=== PATIENT | female | born 1945 | race African-American/Black ===

== ENCOUNTER 2020-09-23 09:01 | Inpatient (IN) ==
[2020-09-23 09:07] VITALS: BMI 44.2
[2020-09-23 09:39] LABS: BASOPHILS # (AUTO) 0.1 X10^3/uL (0.0-0.1); BASOPHILS % (AUTO) 0.8 % (0.2-1.0); EOSINOPHILS # (AUTO) 0.3 x10^3/uL (0.0-0.2); EOSINOPHILS % (AUTO) 3.2 % (0.9-2.9); HEMATOCRIT 37.5 % (36.0-47.0); HEMOGLOBIN 12.3 g/dL (12.0-16.0); LYMPHOCYTES # (AUTO) 1.4 X10^3/uL (1.3-2.9); LYMPHOCYTES % (AUTO) 15.5 % (21.0-51.0); MEAN CORPUSCULAR HEMOGLOBIN 28.9 pg (27.0-34.0); MEAN CORPUSCULAR HGB CONC 32.9 g/dL (33.0-35.0); MEAN CORPUSCULAR VOLUME 87.6 fL (80.0-100.0); MEAN PLATELET VOLUME 8.5 fL (7.4-11.0); MONOCYTES # (AUTO) 0.6 x10^3/uL (0.3-0.8); MONOCYTES % (AUTO) 7.1 % (0.0-13.0); NEUTROPHILS # (AUTO) 6.4 x10^3/uL (2.2-4.8); NEUTROPHILS % (AUTO) 73.4 % (42.0-75.0); PLATELET COUNT 222 X10^3/uL (150.0-450.0); RED BLOOD COUNT 4.27 X10^6/uL (3.5-5.4); RED CELL DISTRIBUTION WIDTH 14.6 % (11.6-16.5); WHITE BLOOD COUNT 8.7 X10^3/uL (3.6-10.0)
[2020-09-23] MEDS ORDERED: LASIX IVP ONE ×2 (09:41→10:01)
--- NOTE | 2020-09-23 09:59 | DR.SOBA ---
HPI Time Seen Time Seen by Provider: 09/23/20 09:03 HPI Comment HPI Comment: Patient states that she got up to go to the bathroom this morning and she passed out. Notes taht she felt a little dizzy when she got up. [place] "fine" when she went to bed last night. Denies any chest pain. Notes that she has h/o CHF and has had worsening sob despite taking her meds. Notes that she can only walk a very short distance before she is winded and must rest. COVID-19 Coronavirus risk:travel/contact w/high risk person: No Has patient experienced Coronavirus symptoms: Yes Coronavirus symptoms experienced: Shortness of Breath PMH PMH Past Surgical History: Yes Travel Risk Coronavirus risk:travel/contact w/high risk person: No Has patient experienced Coronavirus symptoms: Yes Coronavirus symptoms experienced: Shortness of Breath ROS Review of Systems Constitutional: See HPI Respiratoy: Dry Cough and Short of Breath Cardiovascular: See HPI and Syncope; negative Chest Pain, Edema, Palpitations, Cyanosis, Skin Mottling and Other All Other Systems: Reviewed and Negative PE Vital Signs Vitals: Temperature 97.9 F Pulse Rate [Sitting] 83 Pulse Rate [Lying] 83 Pulse Rate 80 Respiratory Rate 20 Blood Pressure [Sitting] 142/98 Blood Pressure [Lying] 147/92 Blood Pressure 147/99 O2 Sat by Pulse Oximetry 95 General Limitations: No Limitations General Appearance: Alert and In No Apparent Distress COURSE Reevaluation 1st: Unchanged (discussed labs and need for CTA with patient and family. Patient notes that she is claustrophobic. Will give Ativan to help patient tolerate CT scan.) 2nd: Unchanged (patient dizzy with orthostatic manuevers, but no significant change in orthostatic VS. will obtain CT head) Consultation Consultation Comments: Spoke with Dr. Giuliana Johns who accepts patient for admission. Dr. Winn (PCP) is out of town [facility] Labs Reviewed Laboratory Results Reviewed?: Yes Result Diagrams: 09/23/20 09:13 09/23/20 09:13 Laboratory: WBC 8.7 X10^3/uL (3.6-10.0) 09/23/20 09:13 RBC 4.27 X10^6/uL (3.5-5.4) 09/23/20 09:13 Hgb 12.3 g/dL (12.0-16.0) 09/23/20 09:13 Hct 37.5 % (36.0-47.0) 09/23/20 09:13 MCV 87.6 fL (80.0-100.0) 09/23/20 09:13 MCH 28.9 pg (27.0-34.0) 09/23/20 09:13 MCHC 32.9 g/dL (33.0-35.0) L 09/23/20 09:13 RDW 14.6 % (11.6-16.5) 09/23/20 09:13 Plt Count 222 X10^3/uL (150.0-450.0) 09/23/20 09:13 MPV 8.5 fL (7.4-11.0) 09/23/20 09:13 Neut % (Auto) 73.4 % (42.0-75.0) 09/23/20 09:13 Lymph % (Auto) 15.5 % (21.0-51.0) L 09/23/20 09:13 [place] % (Auto) 7.1 % (0.0-13.0) 09/23/20 09:13 Eos % (Auto) 3.2 % (0.9-2.9) H 09/23/20 09:13 Baso % (Auto) 0.8 % (0.2-1.0) 09/23/20 09:13 Neut # (Auto) 6.4 x10^3/uL (2.2-4.8) H 09/23/20 09:13 Lymph # (Auto) 1.4 X10^3/uL (1.3-2.9) 09/23/20 09:13 [place] # (Auto) 0.6 x10^3/uL (0.3-0.8) 09/23/20 09:13 Eos # (Auto) 0.3 x10^3/uL (0.0-0.2) H 09/23/20 09:13 Baso # (Auto) 0.1 X10^3/uL (0.0-0.1) 09/23/20 09:13 Absolute Nucleated RBC 0.0 /100WBC 09/23/20 09:13 D-Dimer 8.94 ug/ml (0.0-0.57) H* 09/23/20 09:13 Sodium 144 mmol/L (136-145) 09/23/20 09:13 Corrected Sodium 146 mmol/L (136-145) H 09/23/20 09:13 Potassium 4.3 mmol/L (3.5-5.1) 09/23/20 09:13 Chloride 106 mmol/L (98-107) 09/23/20 09:13 Carbon Dioxide 24.4 mmol/L (21-32) 09/23/20 09:13 BUN 20 mg/dL (7-18) H 09/23/20 09:13 Creatinine 1.27 mg/dL (0.55-1.02) H 09/23/20 09:13 Est GFR (MDRD) Af Amer 53 (>60) L 09/23/20 09:13 Est GFR (MDRD) Non-Af 44 (>60) L 09/23/20 09:13 Glucose 178 mg/dL (65-99) H 09/23/20 09:13 Calcium 9.0 mg/dL (8.5-10.1) 09/23/20 09:13 Corrected Calcium TNP 09/23/20 09:13 Magnesium 0.9 mg/dL (1.7-2.9) L 09/23/20 09:13 Total Bilirubin 0.20 mg/dL (0.2-1.0) 09/23/20 09:13 AST 34 Units/L (15-37) 09/23/20 09:13 ALT 38 Units/L (12-78) 09/23/20 09:13 Alkaline Phosphatase 50 Units/L (46-116) 09/23/20 09:13 Creatine Kinase 107 Units/L (26-192) 09/23/20 09:13 CK-MB (CK-2) 2.2 ng/mL (0-4.0) 09/23/20 09:13 CK/CKMB % Calc 2.1 % (<4) 09/23/20 09:13 Troponin I 0.10 ng/mL (0-1.5) 09/23/20 09:13 B-Natriuretic Peptide 51.4 pg/mL (0-79) 09/23/20 09:13 Total Protein 7.6 g/dL (6.4-8.2) 09/23/20 09:13 Albumin 3.8 g/dL (3.4-5.0) 09/23/20 09:13 Globulin 3.8 g/dL (2.5-4.5) 09/23/20 09:13 Albumin/Globulin Ratio 1.0 Ratio (1.1-2.1) L 09/23/20 09:13 XRAY X-ray Results: CHEST, PA/LAT ADULT HISTORY:SOB Study: PA and lateral views of the chest. Comparison:None Findings: Cardiomegaly and pulmonary vascular congestion. No focal consolidations, pleural effusions or pneumothorax. Osseous structures demonstrate no acute abnormality. IMPRESSION: 1. Cardiomegaly and pulmonary vascular congestion. Electronically signed by: MARY MCFARLAND (Sep 23, 2020 10:07:41) HISTORY Dizziness, syncope STUDY CT head without contrast Technique: Axial noncontrast images with coronal and sagittal reformats. Dose reduction procedures were used with mA/kv adjusted for body size. COMPARISON None FINDINGS The ventricles, cortical sulci, and other CSF spaces are mildly enlarged consistent with mild generalized atrophy likely age related. There are no focal areas of abnormal attenuation to suggest recent or remote CVA, hemorrhage, mass lesion, or extra-axial fluid collection. The visualized sinuses are clear. The calvarium is intact. IMPRESSION No acute intracranial abnormality Generalized atrophy likely age related Electronically signed by: AZALEA WAGNER (Sep 23, 2020 11:47:51) Opioid Opioid Risk Tool Age ([place] box if 16-45): No History of Preadolescent Sexual Abuse: No Total: 0 Total Score Risk Category: Low Risk Copyright: Mani TORO predicting aberrant behaviors Diagnosis Discharge Problem: Pulmonary embolism Qualifiers: Pulmonary embolism type: saddle Chronicity: acute Acute cor pulmonale presence: unspecified Qualified Code(s): I26.92 - Saddle embolus of pulmonary artery without acute cor pulmonale
--- NOTE | 2020-09-23 10:09 | RAD ---
CHEST, PA/LAT ADULTHISTORY:SOBStudy: PA and lateral views of the chest.Comparison:NoneFindings:Cardiomegaly and pulmonary vascular congestion. No focal consolidations, pleural effusions or pneumothorax. Osseous structures demonstrate no acute abnormality.IMPRESSION:1. Cardiomegaly and pulmonary vascular congestion.Electronically signed by: MARY MCFARLAND (Sep 23, 2020 10:07:41)
[2020-09-23 10:18] LABS: ALANINE AMINOTRANSFERASE 38 Units/L (12-78); ALBUMIN 3.8 g/dL (3.4-5.0); ALKALINE PHOSPHATASE 50 Units/L (46-116); ASPARTATE AMINO TRANSFERASE 34 Units/L (15-37); BLOOD UREA NITROGEN 20 mg/dL (7-18); CARBON DIOXIDE 24.4 mmol/L (21-32); CHLORIDE 106 mmol/L (98-107); CKMB % 2.1 % (<4); COR NA(FOR HYPERGLY) 146 mmol/L (136-145); CREATINE KINASE 107 Units/L (26-192); CREATINE KINASE MB 2.2 ng/mL (0-4.0); CREATININE 1.27 mg/dL (0.55-1.02); MAGNESIUM 0.9 mg/dL (1.7-2.9); SODIUM 144 mmol/L (136-145); TOTAL PROTEIN 7.6 g/dL (6.4-8.2); eGFR NON BLACK RACES 44 (>60)
[2020-09-23] MEDS ORDERED: NS 100 ML IV 100 ML ONE (10:56)
[2020-09-23] MEDS ORDERED: ATIVAN INJ 2 MG VIAL IVP STA (10:57)
[2020-09-23] MEDS ORDERED: ATIVAN INJ 2 MG VIAL ONE (11:07)
--- NOTE | 2020-09-23 11:50 | CT ---
HISTORYDizziness, syncopeSTUDYCT head without contrastTechnique: Axial noncontrast images with coronal and sagittal reformats. Dose reduction procedures were used with mA/kv adjusted for body size.COMPARISONNoneFINDINGSThe ventricles, cortical sulci, and other CSF spaces are mildly enlarged consistent with mild generalized atrophy likely age related. There are no focal areas of abnormal attenuation to suggest recent or remote CVA, hemorrhage, mass lesion, or extra-axial fluid collection. The visualized sinuses are clear. The calvarium is intact.IMPRESSIONNo acute intracranial abnormalityGeneralized atrophy likely age relatedElectronically signed by: AZALEA WAGNER (Sep 23, 2020 11:47:51)
--- NOTE | 2020-09-23 11:56 | CT ---
CTA CHESTCLINICAL INDICATION: Elevated D-dimerPROCEDURE: Non gated axial images of the chest were obtained with intravenous contrast according to pulmonary embolism protocol. MIPS were reconstructed Dose reduction techniques including Automated Exposure Control (AEC) and adjustment of mA and kV were utlized.COMPARISON:NoneFINDINGS:There is a saddle embolism extending into all lobes.The heart is normal in size. No definite evidence of right heart strain. Severe coronary calcification.. No suspicious mediastinal or axillary lymph nodes . No focal consolidations, pleural effusions or pneumothorax .Airways are patent . No suspicious pulmonary nodules or masses .Limited images of the upper abdomen are unremarkable.No aggressive osseous lesions.IMPRESSION:1. Saddle embolism as above. No definite evidence of right heart strain.Electronically signed by: MARY MCFARLAND (Sep 23, 2020 11:54:23)
[2020-09-23] MEDS ORDERED: LOVENOX INJ 100 MG SYR SC STA (12:11)
[2020-09-23 12:17] LABS: BILIRUBIN,URINE NEGATIVE (NEGATIVE); BLOOD/HEMOGLOBIN,URINE 3+ (NEGATIVE); GLUCOSE, URINE NEGATIVE (NEGATIVE); KETONES,URINE NEGATIVE (NEGATIVE); LEUKOCYTE ESTERASE ,URINE NEGATIVE (NEGATIVE); NITRITES,URINE NEGATIVE (NEGATIVE); PROTEIN,URINE NEGATIVE (NEGATIVE); UROBILINOGEN,URINE NORMAL (NORMAL)
[2020-09-23] MEDS ORDERED: ELIQUIS ONE (12:23)
[2020-09-23] MEDS ORDERED: LOVENOX INJ 100 MG SYR SC ONE (12:23)
[2020-09-23 12:28] LABS: APPEARANCE,URINE CLEAR (CLEAR); COLOR,URINE YELLOW (YELLOW)
[2020-09-23] MEDS: ELIQUIS PO SCH ×2 (12:28→20:35)
[2020-09-23 12:31] LABS: BACTERIA,URINE NEGATIVE /HPF (NEGATIVE); SQUAMOUS EPITHELIAL CELL,UR RARE /HPF (NEGATIVE)
--- NOTE | 2020-09-23 13:29 | VAS ---
HISTORYEvaluate for possible deep vein thrombosis in the lower extremitySTUDYLOWER EXT VENOUS, BILATERALCOMPARISONNoneFINDINGSUltrasound evaluation of the deep venous system of both legs was perfo rmed from the level of the inguinal ligament down to the calf. Deep system is widely patent with good flow and compressibility seen along their course. No evidence of intraluminal thrombus is identified in either leg.IMPRESSIONNo deep vein thrombosis is seen in either lower extremityElectronically sign ed by: KAREN FOX (Sep 23, 2020 13:27:26)
[2020-09-23] MEDS: NS 1000 ML 1,000 ML IV SCH (14:16)
[2020-09-23] MEDS ORDERED: APRESOLINE INJ 20 MG VIAL IVP PRN (16:16)
[2020-09-23] MEDS ORDERED: MICRO K EXTEN CAP 10 MEQ PO PRN (18:03)
[2020-09-23] MEDS ORDERED: POTASSIUM CHLORIDE LIQ 20 MEQ UDC PO PRN (18:03)
[2020-09-23] MEDS ORDERED: POTASSIUM CHL 60 MEQ/NS 0.45% 500 ML IV PRN (18:03)
[2020-09-23] MEDS ORDERED: K-RIDER 10 MEQ/NS 100 ML 10 MEQ/100 ML BAG IV PRN (18:03)
[2020-09-23] MEDS ORDERED: POTASSIUM CHL 40 MEQ/NS 0.45% 500 ML IV PRN (18:03)
[2020-09-23] MEDS ORDERED: KLOR-CON PO PRN (18:03)
[2020-09-23] MEDS ORDERED: K-DUR TAB 20 MEQ PO PRN (18:03)
[2020-09-23] MEDS: MAGNESIUM SULFATE 1 GRAM/100 mL PREMIX 1 GM/100 ML BAG IV PRN ×4 (19:17→22:21)
[2020-09-23] MEDS: CATAPRES TAB 0.1 MG PO SCH (20:35)
[2020-09-23] MEDS: HumuLIN R SUBCUT PRN ×2 (20:36→21:47)
[2020-09-23] MEDS: RESTORIL CAP 15 MG PO PRN (22:21)
[2020-09-24] MEDS: MAGNESIUM SULFATE 1 GRAM/100 mL PREMIX 1 GM/100 ML BAG IV PRN ×3 (00:24→09:21)
[2020-09-24 05:28] LABS: BASOPHILS # (AUTO) 0.1 X10^3/uL (0.0-0.1); BASOPHILS % (AUTO) 0.7 % (0.2-1.0); EOSINOPHILS # (AUTO) 0.3 x10^3/uL (0.0-0.2); EOSINOPHILS % (AUTO) 3.2 % (0.9-2.9); HEMATOCRIT 37.6 % (36.0-47.0); HEMOGLOBIN 12.5 g/dL (12.0-16.0); LYMPHOCYTES # (AUTO) 1.7 X10^3/uL (1.3-2.9); MEAN CORPUSCULAR HGB CONC 33.2 g/dL (33.0-35.0); MEAN CORPUSCULAR VOLUME 87.2 fL (80.0-100.0); MEAN PLATELET VOLUME 8.6 fL (7.4-11.0); MONOCYTES # (AUTO) 0.9 x10^3/uL (0.3-0.8); MONOCYTES % (AUTO) 11.3 % (0.0-13.0); NEUTROPHILS # (AUTO) 5.4 x10^3/uL (2.2-4.8); NEUTROPHILS % (AUTO) 64.8 % (42.0-75.0); PLATELET COUNT 210 X10^3/uL (150.0-450.0); RED BLOOD COUNT 4.31 X10^6/uL (3.5-5.4); RED CELL DISTRIBUTION WIDTH 15.1 % (11.6-16.5); WHITE BLOOD COUNT 8.4 X10^3/uL (3.6-10.0)
[2020-09-24 05:39] LABS: ALANINE AMINOTRANSFERASE 26 Units/L (12-78); ALBUMIN 3.3 g/dL (3.4-5.0); ALKALINE PHOSPHATASE 48 Units/L (46-116); ASPARTATE AMINO TRANSFERASE 28 Units/L (15-37); BLOOD UREA NITROGEN 14 mg/dL (7-18); CALCIUM 8.7 mg/dL (8.5-10.1); CARBON DIOXIDE 24.3 mmol/L (21-32); CHLORIDE 103 mmol/L (98-107); COR CA(FOR HYPOALB) 9.3 mg/dL (8.5-10.1); COR NA(FOR HYPERGLY) 142 mmol/L (136-145); CREATININE 1.05 mg/dL (0.55-1.02); SODIUM 140 mmol/L (136-145); TOTAL PROTEIN 7.1 g/dL (6.4-8.2); eGFR NON BLACK RACES 55 (>60)
--- NOTE | 2020-09-24 05:39 | RAD ---
PROCEDURE: Chest X-ray 1 View .HISTORY: Short of breath.TECHNIQUE: AP view .COMPARISON: 09/23/2020.TECHNICAL QUALITY: Satisfactory .FINDINGS:Normal size heart .Mediastinum and hilar regions show no masses or lymphadenopathy .Normal central vascularity .No pulmonary consolidation, masses, pleural fluid, or pneumothorax .No acute bony abnormality .IMPRESSION:No active cardiopulmonary disease .Electronically signed by: Beto Persaud (Sep 24, 2020 05:37:27)
[2020-09-24] MEDS: NS 1000 ML 1,000 ML IV SCH ×2 (05:48→17:17)
[2020-09-24] MEDS: HYDROCHLOROTHIAZIDE 25 MG TAB PO SCH (09:16)
[2020-09-24] MEDS: ELIQUIS PO SCH ×2 (09:16→20:42)
[2020-09-24] MEDS: CATAPRES TAB 0.1 MG PO SCH ×2 (09:16→20:41)
[2020-09-24] MEDS: HumuLIN R SUBCUT PRN ×2 (11:36→20:42)
[2020-09-24] MEDS ORDERED: TYLENOL 325 MG TAB PO PRN (16:16)
--- NOTE | 2020-09-24 16:43 | DR.H&P ---
H&P History & Physical for Day of: H&P Date: 09/24/20 Chief Complaint Chief Complaint: passed out, saddle embolus Allergies Allergies Allergy/AdvReac Type Severity Reaction Status Date / Time No Known Drug Allergies Allergy Verified 09/23/20 09:01 History of Present Illness History of Present Illness: 74 y/o with dm, htn, chf has had worsening sob over the past month for which she was to have a ct but refused due to claustrophobia; passed out last night and presented to the ER where she was found to have a saddle embolus; currently, resting quietly in bed with family at bedside; still sob and weak when she moves around and is on oxygen; she has never had a clot and denies acute injury and long trips or sitting for long periods of time; her sister recently from a blood clot but she is unaware of additional fh clots. Past Medical History Past Medical History: CHF, Coronary Artery Disease, Diabetes, Dyslipidemia, GERD and Hypertension Additional Medical History: diabetes Past Surgical History Surgical History: CABG/Valve Surgery Family History Family Medical History: Diabetes Mellitus, [place] and Hypertension Social History Does patient currently use any type of tobacco product: No Have you used tobacco products in the last 12 months: No Type of Tobacco Use: None Does any household member use tobacco: No Alcohol Use: None Drug Use: Prescription Drugs Medications Home Medications: No Known Drug Allergies Allergy (Verified 09/23/20 09:01) CONTINUE taking the following medications clonidine HCl 0.1 mg PO BID 09/23/20 [History] clopidogrel 75 mg PO DAILY 09/23/20 [History] duloxetine 30 mg PO DAILY 09/23/20 [History] glimepiride 4 mg PO BID 09/23/20 [History] hydrochlorothiazide 25 mg PO DAILY 09/23/20 [History] insulin glargine-lixisenatide [[place] 100/33] 60 unit SUBCUT DAILY 09/23/20 [Hi story] lovastatin 40 mg PO DAILY 09/23/20 [History] metformin 1,000 mg PO BID 09/23/20 [History] metoprolol tartrate 25 mg PO BID 09/23/20 [History] pantoprazole 40 mg PO DAILY 09/23/20 [History] spironolactone 50 mg PO DAILY 09/23/20 [History] tramadol 50 mg PO TID PRN 09/23/20 [History] allopurinol 100 mg PO DAILY 09/24/20 [History] pregabalin 150 mg PO BID 09/24/20 [History] pregabalin 150 mg PO BID 09/24/20 [History] Labs Result Diagrams: 09/24/20 04:50 09/24/20 04:50 Labs: Laboratory WBC 8.4 X10^3/uL (3.6-10.0) 09/24/20 04:50 RBC 4.31 X10^6/uL (3.5-5.4) 09/24/20 04:50 Hgb 12.5 g/dL (12.0-16.0) 09/24/20 04:50 Hct 37.6 % (36.0-47.0) 09/24/20 04:50 MCV 87.2 fL (80.0-100.0) 09/24/20 04:50 MCH 29.0 pg (27.0-34.0) 09/24/20 04:50 MCHC 33.2 g/dL (33.0-35.0) 09/24/20 04:50 RDW 15.1 % (11.6-16.5) 09/24/20 04:50 Plt Count 210 X10^3/uL (150.0-450.0) 09/24/20 04:50 MPV 8.6 fL (7.4-11.0) 09/24/20 04:50 Neut % (Auto) 64.8 % (42.0-75.0) 09/24/20 04:50 Lymph % (Auto) 20.0 % (21.0-51.0) L 09/24/20 04:50 [place] % (Auto) 11.3 % (0.0-13.0) 09/24/20 04:50 Eos % (Auto) 3.2 % (0.9-2.9) H 09/24/20 04:50 Baso % (Auto) 0.7 % (0.2-1.0) 09/24/20 04:50 Neut # (Auto) 5.4 x10^3/uL (2.2-4.8) H 09/24/20 04:50 Lymph # (Auto) 1.7 X10^3/uL (1.3-2.9) 09/24/20 04:50 [place] # (Auto) 0.9 x10^3/uL (0.3-0.8) H 09/24/20 04:50 Eos # (Auto) 0.3 x10^3/uL (0.0-0.2) H 09/24/20 04:50 Baso # (Auto) 0.1 X10^3/uL (0.0-0.1) 09/24/20 04:50 Absolute Nucleated RBC 0.0 /100WBC 09/24/20 04:50 D-Dimer 8.94 ug/ml (0.0-0.57) H* 09/23/20 09:13 Sodium 140 mmol/L (136-145) 09/24/20 04:50 Corrected Sodium 142 mmol/L (136-145) 09/24/20 04:50 Potassium 4.4 mmol/L (3.5-5.1) 09/24/20 04:50 Chloride 103 mmol/L (98-107) 09/24/20 04:50 Carbon Dioxide 24.3 mmol/L (21-32) 09/24/20 04:50 BUN 14 mg/dL (7-18) 09/24/20 04:50 Creatinine 1.05 mg/dL (0.55-1.02) H 09/24/20 04:50 Est GFR (MDRD) Af Amer > 60 (>60) 09/24/20 04:50 Est GFR (MDRD) Non-Af 55 (>60) L 09/24/20 04:50 Glucose 189 mg/dL (65-99) H 09/24/20 04:50 POC Glucose (mg/dL) 198 mg/dL (65-99) H 09/24/20 16:21 Calcium 8.7 mg/dL (8.5-10.1) 09/24/20 04:50 Corrected Calcium 9.3 mg/dL (8.5-10.1) 09/24/20 04:50 Magnesium 1.8 mg/dL (1.7-2.9) 09/24/20 04:50 Total Bilirubin 0.30 mg/dL (0.2-1.0) 09/24/20 04:50 AST 28 Units/L (15-37) 09/24/20 04:50 ALT 26 Units/L (12-78) 09/24/20 04:50 Alkaline Phosphatase 48 Units/L (46-116) 09/24/20 04:50 Creatine Kinase 107 Units/L (26-192) 09/23/20 09:13 CK-MB (CK-2) 2.2 ng/mL (0-4.0) 09/23/20 09:13 CK/CKMB % Calc 2.1 % (<4) 09/23/20 09:13 Troponin I 0.10 ng/mL (0-1.5) 09/23/20 09:13 B-Natriuretic Peptide 51.4 pg/mL (0-79) 09/23/20 09:13 Total Protein 7.1 g/dL (6.4-8.2) 09/24/20 04:50 Albumin 3.3 g/dL (3.4-5.0) L 09/24/20 04:50 Globulin 3.8 g/dL (2.5-4.5) 09/24/20 04:50 Albumin/Globulin Ratio 0.9 Ratio (1.1-2.1) L 09/24/20 04:50 Specimen Type Catherized urine 09/23/20 11:54 Urine Color Yellow (YELLOW) 09/23/20 11:54 Urine Appearance Clear (CLEAR) 09/23/20 11:54 Urine pH 6.0 (5.0 - 8.0) 09/23/20 11:54 Ur Specific [place] 1.015 (1.000-1.030) 09/23/20 11:54 Urine Protein Negative (NEGATIVE) 09/23/20 11:54 Urine Glucose (UA) Negative (NEGATIVE) 09/23/20 11:54 Urine Ketones Negative (NEGATIVE) 09/23/20 11:54 Urine Occult Blood 3+ (NEGATIVE) 09/23/20 11:54 Urine Nitrite Negative (NEGATIVE) 09/23/20 11:54 Urine Bilirubin Negative (NEGATIVE) 09/23/20 11:54 Urine Urobilinogen Normal (NORMAL) 09/23/20 11:54 Ur Leukocyte Esterase Negative (NEGATIVE) 09/23/20 11:54 Urine RBC 10-20 /HPF (0-3) A 09/23/20 11:54 Urine WBC 0-2 /HPF (0-5) 09/23/20 11:54 Ur Squamous Epith Cells Rare /HPF (NEGATIVE) 09/23/20 11:54 Urine Bacteria Negative /HPF (NEGATIVE) 09/23/20 11:54 Ur Culture Indicated? No/not indicated 09/23/20 11:54 Review of Systems Eyes: No Symptoms Reported ENT: No Symptoms Reported Respiratory: See HPI and Shortness of Breath Cardiovascular: Chest Pain and See HPI Gastrointestinal: No Symptoms Reported Musculoskeletal: No Symptoms Reported Skin: No Symptoms Reported Neurological: No Symptoms Reported Physical Exam Vital Signs: Temperature 99.1 F Pulse Rate [Right] 83 Pulse Rate [Left] 63 Pulse Rate [Sitting] 83 Pulse Rate [Lying] 83 Pulse Rate 73 Respiratory Rate 24 Blood Pressure [Left Arm] 160/88 Blood Pressure [Sitting] 142/98 Blood Pressure [Lying] 147/92 Blood Pressure 137/80 O2 Sat by Pulse Oximetry 97 Oriented: Normal, Time, Person and Place Eyes: Normal Ear: Normal Respiratory: Clear Throughout (increased wob especially with talking, respirations 30-40) Cardiovascular: Tachycardia Palpation: Normal Skin: Normal Musculoskeletal: Normal Mood Description: Calm Affect: Normal Speech Pattern: Clear Assessment/Plan (1) Saddle embolism of pulmonary artery: Qualifiers: Chronicity: acute Acute cor pulmonale presence: unspecified Qualified Code(s): I26.92 - Saddle embolus of pulmonary artery without acute cor pulmonale Status: Acute Plan: She remains sob with increased respirations and work of breathing; continue oxygen and monitoring overnight; she will need to be up and mobile before discharge. (2) Tachypnea: Status: Acute (3) Hypertension, essential: Status: Acute Plan: Controlled; continue current mgmt. (4) Type 2 diabetes mellitus: Qualifiers: Diabetes mellitus senior living insulin use: without termite renewal inspector use Diabetes mellitus complication status: without complication Qualified Code(s): E11.9 - Type 2 diabetes mellitus without complications Status: Acute Plan: Monitor bs and follow closely.
[2020-09-24] MEDS: SNACK - Diabetic Appropriate PO SCH (20:00)
[2020-09-24] MEDS: RESTORIL CAP 15 MG PO PRN (21:15)
[2020-09-24] MEDS ORDERED: LEVSIN/MAALOX/LIDOC VISC PO ONE (23:07)
[2020-09-24] MEDS ORDERED: LYRICA CAP 150 mg PO ONE (23:09)
[2020-09-24] MEDS ORDERED: PROTONIX INJ 40 MG VIAL ONE (23:09)
[2020-09-24] MEDS ORDERED: LEVSIN/MAALOX/LIDOC VISC ONE (23:09)
[2020-09-24] MEDS: PROTONIX INJ 40 MG VIAL IVP SCH (23:10)
[2020-09-24] MEDS: LYRICA CAP 150 mg PO SCH (23:10)
[2020-09-25] MEDS: NS 1000 ML 1,000 ML IV SCH ×3 (05:40→18:09)
[2020-09-25] MEDS: HumuLIN R SUBCUT PRN ×4 (05:40→20:07)
[2020-09-25] MEDS: MAGNESIUM SULFATE 1 GRAM/100 mL PREMIX 1 GM/100 ML BAG IV PRN ×2 (06:38→09:00)
[2020-09-25] MEDS: CATAPRES TAB 0.1 MG PO SCH ×2 (08:40→20:07)
[2020-09-25] MEDS: HYDROCHLOROTHIAZIDE 25 MG TAB PO SCH (08:41)
[2020-09-25] MEDS: PROTONIX INJ 40 MG VIAL IVP SCH ×2 (08:41→20:07)
[2020-09-25] MEDS: LYRICA CAP 150 mg PO SCH ×2 (08:41→20:07)
[2020-09-25] MEDS: ELIQUIS PO SCH ×2 (08:41→20:07)
--- NOTE | 2020-09-25 16:29 | PCM.PROG ---
Progress Note Progress Note for Day of Date of Exam: 09/25/20 Subjective Subjective: Resting quietly with family at bedside; still "gives out" when oob to chair or br; no cough or wheezing. She does have intermittent substernal cp which has been there for some time and is unchanged; last had stent placed per Dr Mannie Proctor, 2020. Sugars have been elevated despite poor appetite for several weeks. Past Medical Family Social History Allergies: Allergies No Known Drug Allergies Allergy (Verified 09/23/20 09:01) Review of Systems ROS: No change since H&P Vital Signs and I&O's Vital Signs: Temperature 98.1 F Pulse Rate [Right] 83 Pulse Rate [Left] 63 Pulse Rate [Sitting] 83 Pulse Rate [Lying] 83 Pulse Rate 69 Respiratory Rate 26 Blood Pressure [Left Arm] 160/88 Blood Pressure [Sitting] 142/98 Blood Pressure [Lying] 147/92 Blood Pressure 151/67 O2 Sat by Pulse Oximetry 95 Intake and Output: Intake & Output 09/22/20 09/23/20 09/24/20 09/25/20 23:59 23:59 23:59 23:59 Intake Total 618 / 618 2998 / 2998 2018 Output Total 2024 / 2024 1700 / 1700 1700 / 1700 Balance -1407 / -1407 1298 / 1298 319 / 319 Physical Exam Oriented: Normal, Time, Person and Place Eyes: Normal Ear: Normal Cardiovascular: Normal (regular) Skin: Normal Musculoskeletal: Normal Mood Description: Calm Affect: Normal Speech Pattern: Clear and Appropriate Laboratory and Diagnostics Result Diagrams: 09/24/20 04:50 09/24/20 04:50 Labs: 09/23/20 09:22 Blood Blood Culture - Preliminary 09/23/20 09:13 Blood Blood Culture - Preliminary Laboratory WBC 8.4 X10^3/uL (3.6-10.0) 09/24/20 04:50 RBC 4.31 X10^6/uL (3.5-5.4) 09/24/20 04:50 Hgb 12.5 g/dL (12.0-16.0) 09/24/20 04:50 Hct 37.6 % (36.0-47.0) 09/24/20 04:50 MCV 87.2 fL (80.0-100.0) 09/24/20 04:50 MCH 29.0 pg (27.0-34.0) 09/24/20 04:50 MCHC 33.2 g/dL (33.0-35.0) 09/24/20 04:50 RDW 15.1 % (11.6-16.5) 09/24/20 04:50 Plt Count 210 X10^3/uL (150.0-450.0) 09/24/20 04:50 MPV 8.6 fL (7.4-11.0) 09/24/20 04:50 Neut % (Auto) 64.8 % (42.0-75.0) 09/24/20 04:50 Lymph % (Auto) 20.0 % (21.0-51.0) L 09/24/20 04:50 [place] % (Auto) 11.3 % (0.0-13.0) 09/24/20 04:50 Eos % (Auto) 3.2 % (0.9-2.9) H 09/24/20 04:50 Baso % (Auto) 0.7 % (0.2-1.0) 09/24/20 04:50 Neut # (Auto) 5.4 x10^3/uL (2.2-4.8) H 09/24/20 04:50 Lymph # (Auto) 1.7 X10^3/uL (1.3-2.9) 09/24/20 04:50 [place] # (Auto) 0.9 x10^3/uL (0.3-0.8) H 09/24/20 04:50 Eos # (Auto) 0.3 x10^3/uL (0.0-0.2) H 09/24/20 04:50 Baso # (Auto) 0.1 X10^3/uL (0.0-0.1) 09/24/20 04:50 Absolute Nucleated RBC 0.0 /100WBC 09/24/20 04:50 D-Dimer 8.94 ug/ml (0.0-0.57) H* 09/23/20 09:13 Sodium 140 mmol/L (136-145) 09/24/20 04:50 Corrected Sodium 142 mmol/L (136-145) 09/24/20 04:50 Potassium 4.4 mmol/L (3.5-5.1) 09/24/20 04:50 Chloride 103 mmol/L (98-107) 09/24/20 04:50 Carbon Dioxide 24.3 mmol/L (21-32) 09/24/20 04:50 BUN 14 mg/dL (7-18) 09/24/20 04:50 Creatinine 1.05 mg/dL (0.55-1.02) H 09/24/20 04:50 Est GFR (MDRD) Af Amer > 60 (>60) 09/24/20 04:50 Est GFR (MDRD) Non-Af 55 (>60) L 09/24/20 04:50 Glucose 189 mg/dL (65-99) H 09/24/20 04:50 POC Glucose (mg/dL) 240 mg/dL (65-99) H 09/25/20 15:36 Calcium 8.7 mg/dL (8.5-10.1) 09/24/20 04:50 Corrected Calcium 9.3 mg/dL (8.5-10.1) 09/24/20 04:50 Magnesium 1.5 mg/dL (1.7-2.9) L 09/25/20 04:35 Total Bilirubin 0.30 mg/dL (0.2-1.0) 09/24/20 04:50 AST 28 Units/L (15-37) 09/24/20 04:50 ALT 26 Units/L (12-78) 09/24/20 04:50 Alkaline Phosphatase 48 Units/L (46-116) 09/24/20 04:50 Creatine Kinase 107 Units/L (26-192) 09/23/20 09:13 CK-MB (CK-2) 2.2 ng/mL (0-4.0) 09/23/20 09:13 CK/CKMB % Calc 2.1 % (<4) 09/23/20 09:13 Troponin I 0.10 ng/mL (0-1.5) 09/23/20 09:13 B-Natriuretic Peptide 51.4 pg/mL (0-79) 09/23/20 09:13 Total Protein 7.1 g/dL (6.4-8.2) 09/24/20 04:50 Albumin 3.3 g/dL (3.4-5.0) L 09/24/20 04:50 Globulin 3.8 g/dL (2.5-4.5) 09/24/20 04:50 Albumin/Globulin Ratio 0.9 Ratio (1.1-2.1) L 09/24/20 04:50 Specimen Type Catherized urine 09/23/20 11:54 Urine Color Yellow (YELLOW) 09/23/20 11:54 Urine Appearance Clear (CLEAR) 09/23/20 11:54 Urine pH 6.0 (5.0 - 8.0) 09/23/20 11:54 Ur Specific [place] 1.015 (1.000-1.030) 09/23/20 11:54 Urine Protein Negative (NEGATIVE) 09/23/20 11:54 Urine Glucose (UA) Negative (NEGATIVE) 09/23/20 11:54 Urine Ketones Negative (NEGATIVE) 09/23/20 11:54 Urine Occult Blood 3+ (NEGATIVE) 09/23/20 11:54 Urine Nitrite Negative (NEGATIVE) 09/23/20 11:54 Urine Bilirubin Negative (NEGATIVE) 09/23/20 11:54 Urine Urobilinogen Normal (NORMAL) 09/23/20 11:54 Ur Leukocyte Esterase Negative (NEGATIVE) 09/23/20 11:54 Urine RBC 10-20 /HPF (0-3) A 09/23/20 11:54 Urine WBC 0-2 /HPF (0-5) 09/23/20 11:54 Ur Squamous Epith Cells Rare /HPF (NEGATIVE) 09/23/20 11:54 Urine Bacteria Negative /HPF (NEGATIVE) 09/23/20 11:54 Ur Culture Indicated? No/not indicated 09/23/20 11:54 cta: There is a saddle embolism extending into all lobes. The heart is normal in size. No definite evidence of right heart strain. Severe coronary calcification.. No suspicious mediastinal or axillary lymph nodes . No focal consolidations, pleural effusions or pneumothorax .Airways are patent . No suspicious pulmonary nodules or masses . Limited images of the upper abdomen are unremarkable. No aggressive osseous lesions. Radiology Reviewed: Yes Plan (1) Saddle embolism of pulmonary artery: Status: Acute Qualifiers: Chronicity: acute Acute cor pulmonale presence: unspecified Qualified Code(s): I26.92 - Saddle embolus of pulmonary artery without acute cor pulmonale Plan: She remains sob with increased respirations and work of breathing especially with effort; echo and consult Dr Shoemaker in consideration of embolectomy if she is a candidate; continue oxygen and monitoring overnight; continue oob to br. (2) Tachypnea: Status: Acute Plan: As above. (3) Hypertension, essential: Status: Acute Plan: Controlled; continue current mgmt. (4) Type 2 diabetes mellitus: Status: Acute Qualifiers: Diabetes mellitus watermelon inspector insulin use: without intermediate use Diabetes mellitus complication status: without complication Qualified Code(s): E11.9 - Type 2 diabetes mellitus without complications Plan: Up despite decreased appetite per pt; cover with ssri and follow. (5) Hypomagnesemia: Status: Acute Plan: Replace and follow. (6) CAD (coronary artery disease): Status: Acute Qualifiers: Coronary Disease-Associated Artery/Lesion type: [place] artery [place] vs . transplanted heart: [place] heart Associated angina: with stable angina Qualified Code(s): I25.118 - Atherosclerotic heart disease of [place] coronary artery with other forms of angina pectoris (7) S/P coronary artery stent placement: Status: Acute
[2020-09-25] MEDS: MAG-OX TAB PO SCH (18:09)
[2020-09-25] MEDS: SNACK - Diabetic Appropriate PO SCH (20:00)
[2020-09-25] MEDS: RESTORIL CAP 15 MG PO PRN (20:07)
[2020-09-26 05:16] LABS: BASOPHILS # (AUTO) 0.1 X10^3/uL (0.0-0.1); BASOPHILS % (AUTO) 0.8 % (0.2-1.0); EOSINOPHILS # (AUTO) 0.3 x10^3/uL (0.0-0.2); EOSINOPHILS % (AUTO) 3.6 % (0.9-2.9); HEMATOCRIT 36.8 % (36.0-47.0); HEMOGLOBIN 12.2 g/dL (12.0-16.0); LYMPHOCYTES # (AUTO) 1.8 X10^3/uL (1.3-2.9); LYMPHOCYTES % (AUTO) 21.6 % (21.0-51.0); MEAN CORPUSCULAR HEMOGLOBIN 29.3 pg (27.0-34.0); MEAN CORPUSCULAR HGB CONC 33.2 g/dL (33.0-35.0); MEAN CORPUSCULAR VOLUME 88.3 fL (80.0-100.0); MEAN PLATELET VOLUME 8.4 fL (7.4-11.0); MONOCYTES # (AUTO) 0.9 x10^3/uL (0.3-0.8); MONOCYTES % (AUTO) 10.4 % (0.0-13.0); NEUTROPHILS # (AUTO) 5.3 x10^3/uL (2.2-4.8); NEUTROPHILS % (AUTO) 63.6 % (42.0-75.0); PLATELET COUNT 215 X10^3/uL (150.0-450.0); RED BLOOD COUNT 4.17 X10^6/uL (3.5-5.4); WHITE BLOOD COUNT 8.3 X10^3/uL (3.6-10.0)
[2020-09-26 05:33] LABS: ALANINE AMINOTRANSFERASE 31 Units/L (12-78); ALBUMIN 3.3 g/dL (3.4-5.0); ALKALINE PHOSPHATASE 54 Units/L (46-116); ASPARTATE AMINO TRANSFERASE 12 Units/L (15-37); BLOOD UREA NITROGEN 8 mg/dL (7-18); CALCIUM 8.5 mg/dL (8.5-10.1); CARBON DIOXIDE 28.3 mmol/L (21-32); CHLORIDE 105 mmol/L (98-107); COR CA(FOR HYPOALB) 9.1 mg/dL (8.5-10.1); COR NA(FOR HYPERGLY) 144 mmol/L (136-145); CREATININE 0.97 mg/dL (0.55-1.02); MAGNESIUM 1.4 mg/dL (1.7-2.9); SODIUM 141 mmol/L (136-145); TOTAL PROTEIN 6.9 g/dL (6.4-8.2); eGFR NON BLACK RACES 60 (>60)
[2020-09-26] MEDS: NS 1000 ML 1,000 ML IV SCH (05:41)
[2020-09-26] MEDS: MAGNESIUM SULFATE 1 GRAM/100 mL PREMIX 1 GM/100 ML BAG IV PRN ×3 (05:44→08:15)
[2020-09-26] MEDS: MAG-OX TAB PO SCH ×3 (06:14→16:22)
--- NOTE | 2020-09-26 07:40 | DR.CONSULT ---
CONSULT Consultation for Day of: Date: 09/26/20 Chief Complaint Chief Complaint: Shortness of breath Allergies Allergies Allergy/AdvReac Type Severity Reaction Status Date / Time No Known Drug Allergies Allergy Verified 09/23/20 09:01 History of Present Illness History of Present Illness: 74 yo female with recent acute exacerbation of SOB and CT of chest revealed saddle pulmonary embolus. Treated with heparin . Still, SOB but otherwise stable . Hx of CAD s/p 2 stents the past most recently in April of this year following work up of chest pain. Past Medical History Past Medical History: CHF, Coronary Artery Disease, Diabetes, Dyslipidemia, GERD and Hypertension Additional Medical History: diabetes Past Surgical History Additional Surgical History: Patient has not had CABG as reported in initial H& P. Family History Family Medical History: Diabetes Mellitus, NM and Hypertension Social History Does patient currently use any type of tobacco product: No Have you used tobacco products in the last 12 months: No Type of Tobacco Use: None Does any household member use tobacco: No Alcohol Use: None Drug Use: Prescription Drugs Medications Home Medications: No Known Drug Allergies Allergy (Verified 09/23/20 09:01) CONTINUE taking the following medications clonidine HCl 0.1 mg PO BID 09/23/20 [History] clopidogrel 75 mg PO DAILY 09/23/20 [History] duloxetine 30 mg PO DAILY 09/23/20 [History] glimepiride 4 mg PO BID 09/23/20 [History] hydrochlorothiazide 25 mg PO DAILY 09/23/20 [History] insulin glargine-lixisenatide [[place] 100/33] 60 unit SUBCUT DAILY 09/23/20 [History] lovastatin 40 mg PO DAILY 09/23/20 [History] metformin 1,000 mg PO BID 09/23/20 [History] metoprolol tartrate 25 mg PO BID 09/23/20 [History] pantoprazole 40 mg PO DAILY 09/23/20 [History] spironolactone 50 mg PO DAILY 09/23/20 [History] tramadol 50 mg PO TID PRN 09/23/20 [History] allopurinol 100 mg PO DAILY 09/24/20 [History] pregabalin 150 mg PO BID 09/24/20 [History] Review of Systems Constitutional: Other Eyes: No Symptoms Reported ENT: No Symptoms Reported Respiratory: SOB with Excertion ( and with rest as well) Cardiovascular: No Symptoms Reported Gastrointestinal: Other (GE reflux) Genitourinary: No Symptoms Reported Musculoskeletal: No Symptoms Reported Skin: No Symptoms Reported Physical Exam Vital Signs: Temperature 97.9 F Pulse Rate [Right] 83 Pulse Rate [Left] 63 Pulse Rate [Sitting] 83 Pulse Rate [Lying] 83 Pulse Rate 74 Respiratory Rate 22 Blood Pressure [Left Arm] 160/88 Blood Pressure [Sitting] 142/98 Blood Pressure [Lying] 147/92 Blood Pressure 124/63 O2 Sat by Pulse Oximetry 96 Oriented: Normal, Time, Person and Place Eyes: Normal Ear: Normal Nose: Normal Throat: Normal Respiratory: Clear Throughout Cardiovascular: Normal and Other (regular rate and rhythm) Palpation: Normal Tenderness: Normal Skin: Normal Musculoskeletal: Normal Psychiatric: Normal Mood Description: Calm Affect: Normal Plan Plan: Diagnosis- Saddle pulmonary embolus, still SOB. Echo pending. Will plan EKOS thrombolysis of saddle pulmonary embolus.
[2020-09-26] MEDS ORDERED: ULTRAM PO PRN (10:02)
[2020-09-26] MEDS: PROTONIX INJ 40 MG VIAL IVP SCH ×2 (10:09→21:49)
[2020-09-26] MEDS: ELIQUIS PO SCH (10:10)
[2020-09-26] MEDS: CATAPRES TAB 0.1 MG PO SCH ×2 (10:10→21:45)
[2020-09-26] MEDS: HYDROCHLOROTHIAZIDE 25 MG TAB PO SCH (10:11)
[2020-09-26] MEDS: LYRICA CAP 150 mg PO SCH ×2 (10:13→21:47)
[2020-09-26] MEDS: MILK OF MAGNESIA PO SCH ×4 (10:19→21:48)
[2020-09-26] MEDS: ALDACTONE TAB 25 MG PO SCH (10:20)
[2020-09-26] MEDS: COLACE CAP 100 MG PO SCH ×2 (10:20→21:46)
[2020-09-26] MEDS: BENTYL CAP 10 MG PO PRN ×2 (10:20→16:24)
[2020-09-26] MEDS: ZYLOPRIM PO SCH (10:20)
[2020-09-26] MEDS: ZyrTEC TAB 10 MG PO SCH (10:21)
[2020-09-26] MEDS: LOPRESSOR TAB 25 MG PO SCH ×2 (10:21→21:47)
[2020-09-26] MEDS: CYMBALTA PO SCH (10:21)
[2020-09-26] MEDS: PROTONIX TAB 40 MG PO SCH (10:25)
[2020-09-26] MEDS: INSULIN GLARGINE LIXISENATIDE SUBCUT SCH (10:45)
[2020-09-26] MEDS: [UNRECOGNIZED DRUG - OTHER] SUBCUT SCH (10:45)
[2020-09-26] MEDS: HumuLIN R SUBCUT PRN ×3 (11:55→21:54)
[2020-09-26] MEDS ORDERED: CRESTOR TAB 10 MG PO SCH (21:00)
[2020-09-26] MEDS: SNACK - Diabetic Appropriate PO SCH (21:38)
[2020-09-26] MEDS: PATIENT'S HOME MEDICATION PO SCH (21:49)
[2020-09-26] MEDS: RESTORIL CAP 15 MG PO PRN (21:53)
[2020-09-27 05:12] LABS: BASOPHILS # (AUTO) 0.1 X10^3/uL (0.0-0.1); BASOPHILS % (AUTO) 0.7 % (0.2-1.0); EOSINOPHILS # (AUTO) 0.3 x10^3/uL (0.0-0.2); EOSINOPHILS % (AUTO) 4.1 % (0.9-2.9); HEMATOCRIT 35.8 % (36.0-47.0); LYMPHOCYTES % (AUTO) 26.7 % (21.0-51.0); MEAN CORPUSCULAR HEMOGLOBIN 29.4 pg (27.0-34.0); MEAN CORPUSCULAR HGB CONC 33.4 g/dL (33.0-35.0); MEAN CORPUSCULAR VOLUME 87.9 fL (80.0-100.0); MEAN PLATELET VOLUME 8.6 fL (7.4-11.0); MONOCYTES # (AUTO) 0.8 x10^3/uL (0.3-0.8); MONOCYTES % (AUTO) 10.3 % (0.0-13.0); NEUTROPHILS # (AUTO) 4.4 x10^3/uL (2.2-4.8); NEUTROPHILS % (AUTO) 58.2 % (42.0-75.0); PLATELET COUNT 223 X10^3/uL (150.0-450.0); RED BLOOD COUNT 4.07 X10^6/uL (3.5-5.4); RED CELL DISTRIBUTION WIDTH 14.4 % (11.6-16.5); WHITE BLOOD COUNT 7.5 X10^3/uL (3.6-10.0)
[2020-09-27 05:17] LABS: ALANINE AMINOTRANSFERASE 23 Units/L (12-78); ALBUMIN 3.1 g/dL (3.4-5.0); ALKALINE PHOSPHATASE 57 Units/L (46-116); ASPARTATE AMINO TRANSFERASE 16 Units/L (15-37); BLOOD UREA NITROGEN 10 mg/dL (7-18); CALCIUM 8.5 mg/dL (8.5-10.1); CARBON DIOXIDE 30.4 mmol/L (21-32); CHLORIDE 102 mmol/L (98-107); COR CA(FOR HYPOALB) 9.2 mg/dL (8.5-10.1); COR NA(FOR HYPERGLY) 144 mmol/L (136-145); CREATININE 1.01 mg/dL (0.55-1.02); MAGNESIUM 1.8 mg/dL (1.7-2.9); SODIUM 140 mmol/L (136-145); TOTAL PROTEIN 6.7 g/dL (6.4-8.2); eGFR NON BLACK RACES 57 (>60)
[2020-09-27] MEDS: NS 1000 ML 1,000 ML IV SCH (05:57)
[2020-09-27] MEDS: MAG-OX TAB PO SCH (06:06)
--- NOTE | 2020-09-27 08:42 | PCM.PROG ---
Progress Note - Progress Note for Day of Date of Exam: 09/26/20 - Subjective Subjective: WAS ADMITTED ON 09/23/20 FOR TREATMENT OF AN ACUTE SADDLE EMBOLISM. ON ADMISSION, SHE WAS STARTED ON ELIQUIS 10MG PO BID. TODAY, SHE IS ALERT AND ORIENTED, SITTING UP IN BED ON MORNING ROUNDS. SHE CONTINUES WITH COMPLAINTS OF SHORTNESS OF BREATH WHILE AT REST AND MORE WHILE AMBULATING. STAFF REPORTS THAT PATIENT HAS MODERATE WEAKNESS. ON EXAMINATION, HEART IS REGULAR IN RATE AND RHYTHM. BILATERAL LUNGS ARE NOTED WITH DIMINISHED LUNG SOUNDS THROUGHOUT. ABDOMEN IS OBESE, SOFT, AND NON-TENDER WITH HYPOACTIVE BOWEL SOUNDS NOTED IN ALL QUADRANTS. TRACE EDEMA NOTED TO LOWER EXTREMITIES. HER VITALS THIS MORNING ARE: 98.3-76-23-96%-132/72. LABS WERE OBTAINED. ABNORMAL LAB VALUES INCLUDE THE FOLLOWING: GLUCOSE 242, MAGNESIUM 1.4, AST 12, ALBUMIN 3.3. BLOOD CULTURES ARE PENDING. SHE IS CURRENTLY ON ELIQUIS 10MG PO BID, THE POTASSIUM AND MAGNESIUM PROTOCOLS, NORMAL SALINE AT 75 ML/HR, AND HER HOME MEDICATIONS WERE RESUMED. SHE DENIES A BOWEL MOVEMENT IN SEVERAL DAYS. WE WILL ADD MILK OF MAGNESIA AND COLACE. SHE WILL HAVE AN ECHO DONE THIS MORNING. CONSULTED WITH PATIENT AND PLANS FOR THROMBOLYSIS OF SADDLE PULMONARY EMBOLUS. THIS WILL LIKELY TAKE PLACE TOMORROW OR SATURDAY. OTHERWISE, WE WILL CONTINUE WITH CURRENT PLAN OF CARE TODAY. WE WILL FOLLOW UP WITH AM LABS AND CONTINUE TO MONITOR. ELIQUIS WILL BE HELD AFTER THIS MORNINGS DOSE. TIME SPENT ON CLINICAL ASSESSMENT, REVIEWING LABS AND IMAGING, DECISION MAKING, AND DOCUMENTATION GREATER THAN 45 MINUTES. - Past Medical Family Social History Past Med/Fam/Surg Hx: No changes since H&P Allergies: Allergies No Known Drug Allergies Allergy (Verified 09/23/20 09:01) - Review of Systems ROS: No change since H&P - Vital Signs and I&O's Vital Signs: Temperature 97.7 F Pulse Rate [Right] 83 Pulse Rate [Left] 63 Pulse Rate [Sitting] 83 Pulse Rate [Lying] 83 Pulse Rate 53 Respiratory Rate 18 Blood Pressure [Left Arm] 160/88 Blood Pressure [Sitting] 142/98 Blood Pressure [Lying] 147/92 Blood Pressure 131/70 O2 Sat by Pulse Oximetry 98 Intake and Output: Intake & Output 06/26/09/25/20 09/26/20 09/27/20 11:59 11:59 11:59 11:59 Intake Total 1206 / 1206 3029 / 3029 3416 / 3416 2937 / 2937 Output Total 2425 / 2425 1800 / 1800 2900 / 2900 1375 / 1375 Balance -1219 / -1219 1229 / 1229 516 / 516 1562 / 1562 - Physical Exam Oriented: Normal, Time, Person, Place Eyes: Normal Ear: Normal Nose: Normal Throat: Normal Respiratory: Generalized, Diminished Cardiovascular: Normal, Other (regular rate and rhythm) : Normal Auscultation: Bowel Sounds: Normal Palpation: Normal Tenderness: Normal Skin: Normal Musculoskeletal: Normal Psychiatric: Normal Mood Description: Calm Affect: Normal Speech Pattern: Clear, Appropriate - Laboratory and Diagnostics Result Diagrams: 09/27/20 04:45 09/27/20 04:45 Labs: 09/23/20 09:22 Blood Blood Culture - Preliminary 09/23/20 09:13 Blood Blood Culture - Preliminary Laboratory WBC 7.5 X10^3/uL (3.6-10.0) 09/27/20 04:45 RBC 4.07 X10^6/uL (3.5-5.4) 09/27/20 04:45 Hgb 12.0 g/dL (12.0-16.0) 09/27/20 04:45 Hct 35.8 % (36.0-47.0) L 09/27/20 04:45 MCV 87.9 fL (80.0-100.0) 09/27/20 04:45 MCH 29.4 pg (27.0-34.0) 09/27/20 04:45 MCHC 33.4 g/dL (33.0-35.0) 09/27/20 04:45 RDW 14.4 % (11.6-16.5) 09/27/20 04:45 Plt Count 223 X10^3/uL (150.0-450.0) 09/27/20 04:45 MPV 8.6 fL (7.4-11.0) 09/27/20 04:45 Neut % (Auto) 58.2 % (42.0-75.0) 09/27/20 04:45 Lymph % (Auto) 26.7 % (21.0-51.0) 09/27/20 04:45 [place] % (Auto) 10.3 % (0.0-13.0) 09/27/20 04:45 Eos % (Auto) 4.1 % (0.9-2.9) H 09/27/20 04:45 Baso % (Auto) 0.7 % (0.2-1.0) 09/27/20 04:45 Neut # (Auto) 4.4 x10^3/uL (2.2-4.8) 09/27/20 04:45 Lymph # (Auto) 2.0 X10^3/uL (1.3-2.9) 09/27/20 04:45 [place] # (Auto) 0.8 x10^3/uL (0.3-0.8) 09/27/20 04:45 Eos # (Auto) 0.3 x10^3/uL (0.0-0.2) H 09/27/20 04:45 Baso # (Auto) 0.1 X10^3/uL (0.0-0.1) 09/27/20 04:45 Absolute Nucleated RBC 0.0 /100WBC 09/27/20 04:45 D-Dimer 8.94 ug/ml (0.0-0.57) H* 09/23/20 09:13 Sodium 140 mmol/L (136-145) 09/27/20 04:45 Corrected Sodium 144 mmol/L (136-145) 09/27/20 04:45 Potassium 4.3 mmol/L (3.5-5.1) 09/27/20 04:45 Chloride 102 mmol/L (98-107) 09/27/20 04:45 Carbon Dioxide 30.4 mmol/L (21-32) 09/27/20 04:45 BUN 10 mg/dL (7-18) 09/27/20 04:45 Creatinine 1.01 mg/dL (0.55-1.02) 09/27/20 04:45 Est GFR (MDRD) Af Amer > 60 (>60) 09/27/20 04:45 Est GFR (MDRD) Non-Af 57 (>60) L 09/27/20 04:45 Glucose 247 mg/dL (65-99) H 09/27/20 04:45 POC Glucose (mg/dL) 264 mg/dL (65-99) H 09/26/20 21:25 Calcium 8.5 mg/dL (8.5-10.1) 09/27/20 04:45 Corrected Calcium 9.2 mg/dL (8.5-10.1) 09/27/20 04:45 Magnesium 1.8 mg/dL (1.7-2.9) 09/27/20 04:45 Total Bilirubin 0.40 mg/dL (0.2-1.0) 09/27/20 04:45 AST 16 Units/L (15-37) 09/27/20 04:45 ALT 23 Units/L (12-78) 09/27/20 04:45 Alkaline Phosphatase 57 Units/L (46-116) 09/27/20 04:45 Creatine Kinase 107 Units/L (26-192) 09/23/20 09:13 CK-MB (CK-2) 2.2 ng/mL (0-4.0) 09/23/20 09:13 CK/CKMB % Calc 2.1 % (<4) 09/23/20 09:13 Troponin I 0.10 ng/mL (0-1.5) 09/23/20 09:13 B-Natriuretic Peptide 51.4 pg/mL (0-79) 09/23/20 09:13 Total Protein 6.7 g/dL (6.4-8.2) 09/27/20 04:45 Albumin 3.1 g/dL (3.4-5.0) L 09/27/20 04:45 Globulin 3.6 g/dL (2.5-4.5) 09/27/20 04:45 Albumin/Globulin Ratio 0.9 Ratio (1.1-2.1) L 09/27/20 04:45 Specimen Type Catherized urine 09/23/20 11:54 Urine Color Yellow (YELLOW) 09/23/20 11:54 Urine Appearance Clear (CLEAR) 09/23/20 11:54 Urine pH 6.0 (5.0 - 8.0) 09/23/20 11:54 Ur Specific [place] 1.015 (1.000-1.030) 09/23/20 11:54 Urine Protein Negative (NEGATIVE) 09/23/20 11:54 Urine Glucose (UA) Negative (NEGATIVE) 09/23/20 11:54 Urine Ketones Negative (NEGATIVE) 09/23/20 11:54 Urine Occult Blood 3+ (NEGATIVE) 09/23/20 11:54 Urine Nitrite Negative (NEGATIVE) 09/23/20 11:54 Urine Bilirubin Negative (NEGATIVE) 09/23/20 11:54 Urine Urobilinogen Normal (NORMAL) 09/23/20 11:54 Ur Leukocyte Esterase Negative (NEGATIVE) 09/23/20 11:54 Urine RBC 10-20 /HPF (0-3) A 09/23/20 11:54 Urine WBC 0-2 /HPF (0-5) 09/23/20 11:54 Ur Squamous Epith Cells Rare /HPF (NEGATIVE) 09/23/20 11:54 Urine Bacteria Negative /HPF (NEGATIVE) 09/23/20 11:54 Ur Culture Indicated? No/not indicated 09/23/20 11:54 - Plan (1) Saddle embolism of pulmonary artery Status: Acute Qualifiers: Chronicity: acute Acute cor pulmonale presence: unspecified Qualified Code(s): I26.92 - Saddle embolus of pulmonary artery without acute cor pulmonale Plan: ELIQUIS 10MG PO BID, VASCULAR SURGERY PLANS FOR THROMBOLYSIS (2) CAD (coronary artery disease) Status: Chronic Qualifiers: Coronary Disease-Associated Artery/Lesion type: unspecified vessel or lesion type [place] vs. transplanted heart: [place] heart Associated angina: unspecified whether angina present Qualified Code(s): I25.10 - Atherosclerotic heart disease of [place] coronary artery without angina pectoris (3) Type 2 diabetes mellitus Status: Chronic Qualifiers: Diabetes mellitus roasterman insulin use: with roasterman use Diabetes mellitus complication status: with other specified complication Qualified Code(s): E11.69 - Type 2 diabetes mellitus with other specified complication; Z79.4 - intermediate manager (current) use of insulin (4) Hypertension, essential Status: Chronic
[2020-09-27] MEDS ORDERED: NS 1000 ML 1,000 ML ONE ×2 (09:45→12:22)
[2020-09-27] MEDS ORDERED: HEPARIN SODIUM INJ 5000 UNITS ONE (09:45)
[2020-09-27] MEDS ORDERED: MARCAINE or SENSORCAINE 0.25% WITH EPI IJ ONE (09:45)
[2020-09-27] MEDS ORDERED: HEPARIN SODIUM IN D5W 75,000 UNITS/1,500 ML BAG ONE (09:45)
[2020-09-27] MEDS ORDERED: FENTANYL INJ 100 mcg ONE (10:57)
[2020-09-27] MEDS ORDERED: ANCEF 1 GRAM IV PREMIX* 1 G/50 ML BAG IV ONE (11:07)
[2020-09-27] MEDS ORDERED: LR 1000 ML IV 1,000 ML IV ONE (11:07)
[2020-09-27] MEDS ORDERED: VERSED ONE (12:10)
[2020-09-27] MEDS ORDERED: XYLOCAINE 2 % (PLAIN) ONE (12:10)
[2020-09-27] MEDS ORDERED: KETALAR ONE (12:10)
[2020-09-27] MEDS ORDERED: DIPRIVAN VIAL ONE (12:10)
[2020-09-27] MEDS ORDERED: HEPARIN SODIUM IN D5W 50,000 UNITS/1,000 ML BAG ONE (12:22)
[2020-09-27] MEDS ORDERED: ACTIVASE CATHFLO 12 MG in NS 250 ML IV 228 ML INTRACATH ONE ×5 (12:30→13:49)
[2020-09-27] MEDS ORDERED: ACTIVASE CATHFLO ONE (12:38)
[2020-09-27] MEDS: ACTIVASE CATHFLO 12 MG in NS 250 ML IV 228 ML INTRACATH ONE ×2 (13:49→14:18)
[2020-09-27] MEDS ORDERED: HEPARIN SODIUM IN D5W 25,000 UNITS/500 ML BAG INTRACATH PRN (13:49)
[2020-09-27] MEDS ORDERED: NS 500 ML IV 500 ML IV SCH ×2 (14:00)
[2020-09-27] MEDS: PROTONIX TAB 40 MG PO SCH (15:00)
[2020-09-27] MEDS: CATAPRES TAB 0.1 MG PO SCH ×2 (15:00→21:17)
[2020-09-27] MEDS: COLACE CAP 100 MG PO SCH ×2 (15:00→21:18)
[2020-09-27] MEDS: CYMBALTA PO SCH (15:09)
[2020-09-27] MEDS: ZyrTEC TAB 10 MG PO SCH (15:09)
[2020-09-27] MEDS: INSULIN GLARGINE LIXISENATIDE SUBCUT SCH (15:11)
[2020-09-27] MEDS: [UNRECOGNIZED DRUG - OTHER] SUBCUT SCH (15:11)
[2020-09-27] MEDS: LYRICA CAP 150 mg PO SCH ×2 (15:11→21:20)
[2020-09-27] MEDS: MILK OF MAGNESIA PO SCH ×3 (15:12→21:18)
[2020-09-27] MEDS: LOPRESSOR TAB 25 MG PO SCH ×2 (17:42→22:24)
[2020-09-27] MEDS: ALDACTONE TAB 25 MG PO SCH (17:42)
[2020-09-27] MEDS: ZYLOPRIM PO SCH (17:43)
[2020-09-27] MEDS: HYDROCHLOROTHIAZIDE 25 MG TAB PO SCH (17:43)
[2020-09-27] MEDS: HumuLIN R SUBCUT PRN ×2 (17:48→21:23)
--- NOTE | 2020-09-27 18:17 | OR.IMMED ---
IMMEDIATE POST-OP NOTE Immediate Post-Op Note Pre-Op Diagnosis: Saddle pulmonary embolus and persistent SOB Post-Op Diagnosis: Same, B/L pulmonary emboli Procedure: Placement B/L EKOS thrombolytic catheters right and left pulmonary artery Description of Procedure: See dictated operative summary Surgeon/Sweat Band Separator: [place] Findings: B/L pulmonary emboli Specimens Removed: none Estimated Blood Loss: minimal Drains: NONE Complications: none Progress Notes: Returned to ICU with 2 EKOS infusion catheters right common femoral vein for b/l overnight thrombolysis of b/l pulmonary emboli. Condition: Stable Post Hospital Plans and Medications: 24 hr infusion of TPA and d/c catheters tomorrow and begin Eliquis and will need repeat CT of pulmonary arteries Final Diagnosis: B/L pulmonary emboli.
--- NOTE | 2020-09-27 20:23 | DR.OPNOTE ---
OP NOTE Pre-Op Diagnosis: Saddle/ bilateral pulmonary emboli Post-Op Diagnosis: same Procedure Date Date Of Procedure: 09/27/20 Procedure: This patient had been seen in consultation for saddle embolus of the pulmonary artery and bilateral pulmonary emboli. She remain short of breath. She was taken to the operating suite and placed in the supine position and given IV sedation. The sedation was monitored by myself. Both groins prepped and draped in sterile fashion. Ultrasonography used to identify the right common femoral vein and the skin overlying it infiltrated with 0.5 sent Marcaine with epinephrine. Ultrasonography used to guide puncture of the right common femoral vein and a 0.014 inch wire was placed. Incision made over the guidewire at the skin level and micro sheath placed over the guidewire into the right common femoral vein. The small wire replaced for a 0.035 inch Advantage guidewire. The micro sheath exchanged for a 5 [place] short vascular sheath. Through the sheath venogram was carried out showing a normal vena cava. The guidewire was placed into the right atrium and over the guidewire we placed a [place] catheter with a balloon. The balloon had partial air and partial dye and was inflated we floated the balloon into the left pulmonary artery. Through the [place] catheter we placed the wire into the left pulmonary artery and remove the [place] catheter and placed the treatment catheter over the guidewire into the left main pulmonary artery and exchange the wire for the EKOS catheter. I then attempted to access the left common femoral vein and was unsuccessful. Right common femoral vein again identified with The ultrasound and used to puncture the right common femoral vein. The 0.014 inch wire was placed .The micro sheath placed over this small wire and then exchanged for the larger 0.035 inch wire and a 5 [place] short vascular sheat h. Wire was placed again into the right atrium and the [place] catheter placed over this, balloon inflated and guided into the right main pulmonary artery. The wire placed into the right pulmonary artery and the [place] sheath removed and replaced with the EKOS sheath , removed the wire and placed the EKOS catheter through the sheath into the right pulmonary artery. Each EKOS catheter was infused with 1.5 mg of TPA and the drug port of the catheter started on a drip of 1 mg of TPA per hour, normal saline infused into the coolant port at 35 cc/hr in both catheters and the side port of each sheath infused with 100 units of heparin per hour. Dressing applied to the right groin and the patient transferred back to the ICU in good condition. Type of Anesthesia: Local (10 cc 0.55 Marcaine with epinephrine and MAC anesthesia) Findings: B/l pulmonary emboli, sub- massive Type of Fluids Used:: Lactated Ringers EBL: minimal Drains/Tubes Placed: None Complications:: none Needle/Sponge Count:: correct Disposition/Condition: Pt. tolerated procedure without difficulty. Taken to PACU in stable condition.
[2020-09-27] MEDS: SNACK - Diabetic Appropriate PO SCH (21:00)
[2020-09-27] MEDS: PATIENT'S HOME MEDICATION PO SCH (21:19)
[2020-09-27] MEDS: RESTORIL CAP 15 MG PO PRN (22:30)
[2020-09-28] MEDS: ACTIVASE CATHFLO 12 MG in NS 250 ML IV 228 ML INTRACATH ONE ×3 (00:26→20:34)
[2020-09-28] MEDS: NS 1000 ML 1,000 ML IV SCH ×2 (00:30→20:34)
[2020-09-28] MEDS: BENTYL CAP 10 MG PO PRN (01:33)
[2020-09-28 05:17] LABS: BASOPHILS % (AUTO) 0.5 % (0.2-1.0); EOSINOPHILS # (AUTO) 0.3 x10^3/uL (0.0-0.2); EOSINOPHILS % (AUTO) 3.5 % (0.9-2.9); LYMPHOCYTES # (AUTO) 1.2 X10^3/uL (1.3-2.9); MEAN CORPUSCULAR HEMOGLOBIN 29.4 pg (27.0-34.0); MEAN CORPUSCULAR HGB CONC 33.4 g/dL (33.0-35.0); MEAN PLATELET VOLUME 8.5 fL (7.4-11.0); MONOCYTES # (AUTO) 0.8 x10^3/uL (0.3-0.8); MONOCYTES % (AUTO) 9.3 % (0.0-13.0); NEUTROPHILS # (AUTO) 6.5 x10^3/uL (2.2-4.8); NEUTROPHILS % (AUTO) 73.7 % (42.0-75.0); PLATELET COUNT 191 X10^3/uL (150.0-450.0); RED BLOOD COUNT 3.76 X10^6/uL (3.5-5.4); RED CELL DISTRIBUTION WIDTH 14.4 % (11.6-16.5); WHITE BLOOD COUNT 8.9 X10^3/uL (3.6-10.0)
[2020-09-28 05:19] LABS: ALANINE AMINOTRANSFERASE 18 Units/L (12-78); ALBUMIN 2.8 g/dL (3.4-5.0); ALKALINE PHOSPHATASE 58 Units/L (46-116); ASPARTATE AMINO TRANSFERASE 15 Units/L (15-37); BLOOD UREA NITROGEN 9 mg/dL (7-18); CALCIUM 8.5 mg/dL (8.5-10.1); CARBON DIOXIDE 31.3 mmol/L (21-32); CHLORIDE 104 mmol/L (98-107); COR CA(FOR HYPOALB) 9.5 mg/dL (8.5-10.1); COR NA(FOR HYPERGLY) 142 mmol/L (136-145); CREATININE 0.82 mg/dL (0.55-1.02); SODIUM 139 mmol/L (136-145); TOTAL PROTEIN 6.3 g/dL (6.4-8.2); eGFR NON BLACK RACES > 60 (>60)
[2020-09-28] MEDS: HumuLIN R SUBCUT PRN ×4 (06:11→21:00)
[2020-09-28] MEDS: ELIQUIS PO SCH ×2 (07:55→21:00)
[2020-09-28] MEDS ORDERED: NS 100 ML IV 100 ML ONE (08:44)
[2020-09-28] MEDS: ZYLOPRIM PO SCH (09:20)
[2020-09-28] MEDS: ZyrTEC TAB 10 MG PO SCH (09:20)
[2020-09-28] MEDS: PROTONIX TAB 40 MG PO SCH (09:20)
[2020-09-28] MEDS: CATAPRES TAB 0.1 MG PO SCH ×2 (09:20→21:00)
[2020-09-28] MEDS: LYRICA CAP 150 mg PO SCH ×2 (09:20→21:00)
[2020-09-28] MEDS: [UNRECOGNIZED DRUG - OTHER] SUBCUT SCH (09:21)
[2020-09-28] MEDS: COLACE CAP 100 MG PO SCH ×2 (09:21→21:00)
[2020-09-28] MEDS: INSULIN GLARGINE LIXISENATIDE SUBCUT SCH (09:21)
[2020-09-28] MEDS: MILK OF MAGNESIA PO SCH ×4 (09:22→22:09)
[2020-09-28] MEDS: CYMBALTA PO SCH (09:22)
--- NOTE | 2020-09-28 11:27 | CT ---
HISTORYHistory of PE status post tPA, follow upSTUDYCTA ABMKBWBREKPTAPS15/25/2021TECHNIQUEAngiogram of the chest was performed after the administration of co ntrast. 3D MIPS images were performed. Insert renalFINDINGSThere has been interval resolution of th e saddle component of pulmonary embolism. The previously seen filling defects in the distal left pulm onary artery as well as the branches are no longer present. There is a residual defect in a single l eft lower lobe branchIn the right pulmonary artery distally there is still a filling defect measuring 2.4 by 1.7 centimeter extending along the proximal aspect of the right lower lobe pulmonary artery. There is no evidence of new filling defects, there has interval resolution of the previously seen rig ht upper lobe branch filling defect with residual in the proximal aspect of the vessel.The ascending aorta measures approximately 4.3 centimeters. There is no pleural or pericardial effusions. There is no adrenal masses. There is stranding surrounding the left kidney no specific, the spleen is not enla rged the stomach is not distended, there is no axillary or mediastinal adenopathyLung windows no evid ence of focal pneumonia, there is minimal atelectasis in the lingula. There is a tiny 2 millimeter no dule in the right lower lobe on image 94 unchanged since prior study, no suspicious nodules are seenB one windows no evidence of aggressive bone lesions. Degenerative disc disease at the mid thoracic ethel tebral bodiesIMPRESSIONInterval improvement of previously seen saddle embolus with improvement of PE in the left lung with minimal residual area in the left lower lobe. In the right, there is still a di stal right pulmonary artery filling defect as well as small filling defects in the proximal right upp er lobe branch and the right lower lobe branch.Aneurysm of the ascending aortaElectronically signed b y: Charito Boo (Sep 28, 2020 11:25:21)
--- NOTE | 2020-09-28 12:51 | NOTE.SOAP ---
Soap Note Note for Day of Date of Exam: 09/28/20 Subjective Data Subjective Data: S/P EKOS thrombolysis of B/L PE with saddle embolus. TPA infused over night both right and left pulmonary arteries Repeat CTA shows resolution of saddle embolus with near complete resolution on the left side with marked improvement on the right side with 2.4x1.7 embolus of the right upper lobe. EKOS catheters have been discontinued fro right groin with no active bleeding. Objective Data Pulse Rate: 67 Blood Pressure: 157/74 O2 Sat by Pulse Oximetry: 95 Objective Data: As above . No dyspnea. Feels better,Fibrinogen 519, PT =30, Creatinine 0.82 Assessment Assessment: S/P thrombolysis b/l PE with marked objective and subjective improvement Plan Plan: Eliquis 10 mg BID. May be discharged at any time. F/U Dr. Shoemaker 1 week after discharge
[2020-09-28] MEDS: LOPRESSOR TAB 25 MG PO SCH ×2 (16:43→21:00)
[2020-09-28] MEDS: ALDACTONE TAB 25 MG PO SCH (16:50)
[2020-09-28] MEDS: HYDROCHLOROTHIAZIDE 25 MG TAB PO SCH (16:59)
[2020-09-28] MEDS: SNACK - Diabetic Appropriate PO SCH (20:00)
[2020-09-28] MEDS: RESTORIL CAP 15 MG PO PRN (21:00)
[2020-09-28] MEDS: PATIENT'S HOME MEDICATION PO SCH (21:00)
--- NOTE | 2020-09-28 22:53 | PCM.PROG ---
Progress Note - Progress Note for Day of Date of Exam: 09/27/20 - Subjective Subjective: WAS ADMITTED ON 09/23/20 FOR TREATMENT OF AN ACUTE SADDLE EMBOLISM. ON ADMISSION, SHE WAS STARTED ON ELIQUIS 10MG PO BID, BUT IT HAS BEEN HELD SINCE YESTERDAY. TODAY, SHE IS ALERT AND ORIENTED, SITTING UP IN BED ON MORNING ROUNDS. SHE CONTINUES WITH COMPLAINTS OF SHORTNESS OF BREATH WHILE AT REST AND MORE WHILE AMBULATING. STAFF REPORTS THAT PATIENT CONTINUES WITH MODERATE WEAKNESS. ON EXAMINATION, HEART IS REGULAR IN RATE AND RHYTHM. BILATERAL LUNGS ARE NOTED WITH DIMINISHED LUNG SOUNDS THROUGHOUT. ABDOMEN IS OBESE, SOFT, AND NON-TENDER WITH HYPOACTIVE BOWEL SOUNDS NOTED IN ALL QUADRANTS. TRACE EDEMA NOTED TO LOWER EXTREMITIES. HER VITALS THIS MORNING ARE: 97.3-64-24-95%-137/65. LABS WERE OBTAINED. ABNORMAL LAB VALUES INCLUDE THE FOLLOWING: HCT 35.8, GLUCOSE 247, ALBUMIN 3.1. BLOOD CULTURES ARE PENDING. SHE IS CURRENTLY ON MILK OF MAGNESIA, COLACE, THE POTASSIUM AND MAGNESIUM PROTOCOLS, NORMAL SALINE AT 75 ML/HR, AND HER HOME MEDICATIONS WERE RESUMED. PLANS FOR THROMBOLYSIS OF SADDLE PULMONARY EMBOLUS TODAY. WE ARE IN AGREEMENT WITH PLANS. OTHERWISE, WE WILL CONTINUE WITH CURRENT PLAN OF CARE TODAY. WE WILL FOLLOW UP WITH AM LABS AND CONTINUE TO MONITOR. TIME SPENT ON CLINICAL ASSESSMENT, REVIEWING LABS AND IMAGING, DECISION MAKING, AND DOCUMENTATION GREA TER THAN 45 MINUTES. - Past Medical Family Social History Past Med/Fam/Surg Hx: No changes since H&P Allergies: Allergies No Known Drug Allergies Allergy (Verified 09/23/20 09:01) - Review of Systems ROS: No change since H&P - Vital Signs and I&O's Vital Signs: Temperature 98.6 F Pulse Rate [Right] 54 Pulse Rate [Left] 63 Pulse Rate [Sitting] 83 Pulse Rate [Lying] 83 Pulse Rate 65 Respiratory Rate 19 Blood Pressure [Left Arm] 139/68 Blood Pressure [Sitting] 142/98 Blood Pressure [Lying] 147/92 Blood Pressure 157/74 O2 Sat by Pulse Oximetry 99 Intake and Output: Intake & Output 09/26/20 09/27/20 09/28/20 09/29/20 11:59 11:59 11:59 11:59 Intake Total 3416 / 3416 2937 / 2937 3943 / 3943 1036 / 1036 Output Total 2900 / 2900 1375 / 1375 2185 / 2185 925 / 925 Balance 516 / 516 1562 / 1562 1758 / 1758 111 / 111 - Physical Exam Oriented: Normal, Time, Person, Place Eyes: Normal Ear: Normal Nose: Normal Throat: Normal Respiratory: Generalized, Diminished Cardiovascular: Normal, Other (regular rate and rhythm) : Normal Auscultation: Bowel Sounds: Normal Palpation: Normal Tenderness: Normal Skin: Normal Musculoskeletal: Normal Psychiatric: Normal Mood Description: Calm Affect: Normal Speech Pattern: Clear, Appropriate - Laboratory and Diagnostics Result Diagrams: 09/28/20 04:40 09/28/20 04:40 Labs: 09/23/20 09:22 Blood Blood Culture - Final 09/23/20 09:13 Blood Blood Culture - Final Laboratory WBC 8.9 X10^3/uL (3.6-10.0) 09/28/20 04:40 RBC 3.76 X10^6/uL (3.5-5.4) 09/28/20 04:40 Hgb 11.0 g/dL (12.0-16.0) L 09/28/20 04:40 Hct 33.0 % (36.0-47.0) L 09/28/20 04:40 MCV 88.0 fL (80.0-100.0) 09/28/20 04:40 MCH 29.4 pg (27.0-34.0) 09/28/20 04:40 MCHC 33.4 g/dL (33.0-35.0) 09/28/20 04:40 RDW 14.4 % (11.6-16.5) 09/28/20 04:40 Plt Count 191 X10^3/uL (150.0-450.0) 09/28/20 04:40 MPV 8.5 fL (7.4-11.0) 09/28/20 04:40 Neut % (Auto) 73.7 % (42.0-75.0) 09/28/20 04:40 Lymph % (Auto) 13.0 % (21.0-51.0) L 09/28/20 04:40 Bibb % (Auto) 9.3 % (0.0-13.0) 09/28/20 04:40 Eos % (Auto) 3.5 % (0.9-2.9) H 09/28/20 04:40 Baso % (Auto) 0.5 % (0.2-1.0) 09/28/20 04:40 Neut # (Auto) 6.5 x10^3/uL (2.2-4.8) H 09/28/20 04:40 Lymph # (Auto) 1.2 X10^3/uL (1.3-2.9) L 09/28/20 04:40 [place]b # (Auto) 0.8 x10^3/uL (0.3-0.8) 09/28/20 04:40 Eos # (Auto) 0.3 x10^3/uL (0.0-0.2) H 09/28/20 04:40 Baso # (Auto) 0.0 X10^3/uL (0.0-0.1) 09/28/20 04:40 Absolute Nucleated RBC 0.0 /100WBC 09/28/20 04:40 APTT 30.4 SECONDS (22.9-36.5) 09/28/20 04:40 PTT Comment - 09/28/20 04:40 Fibrinogen 519 mg/dL (239-489) H 09/28/20 04:40 D-Dimer 8.94 ug/ml (0.0-0.57) H* 09/23/20 09:13 Sodium 139 mmol/L (136-145) 09/28/20 04:40 Corrected Sodium 142 mmol/L (136-145) 09/28/20 04:40 Potassium 4.4 mmol/L (3.5-5.1) 09/28/20 04:40 Chloride 104 mmol/L (98-107) 09/28/20 04:40 Carbon Dioxide 31.3 mmol/L (21-32) 09/28/20 04:40 BUN 9 mg/dL (7-18) 09/28/20 04:40 Creatinine 0.82 mg/dL (0.55-1.02) 09/28/20 04:40 Est GFR (MDRD) Af Amer > 60 (>60) 09/28/20 04:40 Est GFR (MDRD) Non-Af > 60 (>60) 09/28/20 04:40 Glucose 229 mg/dL (65-99) H 09/28/20 04:40 POC Glucose (mg/dL) 270 mg/dL (65-99) H 09/28/20 19:44 Calcium 8.5 mg/dL (8.5-10.1) 09/28/20 04:40 Corrected Calcium 9.5 mg/dL (8.5-10.1) 09/28/20 04:40 Magnesium 1.8 mg/dL (1.7-2.9) 09/27/20 04:45 Total Bilirubin 0.40 mg/dL (0.2-1.0) 09/28/20 04:40 AST 15 Units/L (15-37) 09/28/20 04:40 ALT 18 Units/L (12-78) 09/28/20 04:40 Alkaline Phosphatase 58 Units/L (46-116) 09/28/20 04:40 Creatine Kinase 107 Units/L (26-192) 09/23/20 09:13 CK-MB (CK-2) 2.2 ng/mL (0-4.0) 09/23/20 09:13 CK/CKMB % Calc 2.1 % (<4) 09/23/20 09:13 Troponin I 0.10 ng/mL (0-1.5) 09/23/20 09:13 B-Natriuretic Peptide 51.4 pg/mL (0-79) 09/23/20 09:13 Total Protein 6.3 g/dL (6.4-8.2) L 09/28/20 04:40 Albumin 2.8 g/dL (3.4-5.0) L 09/28/20 04:40 Globulin 3.5 g/dL (2.5-4.5) 09/28/20 04:40 Albumin/Globulin Ratio 0.8 Ratio (1.1-2.1) L 09/28/20 04:40 Specimen Type Catherized urine 09/23/20 11:54 Urine Color Yellow (YELLOW) 09/23/20 11:54 Urine Appearance Clear (CLEAR) 09/23/20 11:54 Urine pH 6.0 (5.0 - 8.0) 09/23/20 11:54 Ur Specific [place] 1.015 (1.000-1.030) 09/23/20 11:54 Urine Protein Negative (NEGATIVE) 09/23/20 11:54 Urine Glucose (UA) Negative (NEGATIVE) 09/23/20 11:54 Urine Ketones Negative (NEGATIVE) 09/23/20 11:54 Urine Occult Blood 3+ (NEGATIVE) 09/23/20 11:54 Urine Nitrite Negative (NEGATIVE) 09/23/20 11:54 Urine Bilirubin Negative (NEGATIVE) 09/23/20 11:54 Urine Urobilinogen Normal (NORMAL) 09/23/20 11:54 Ur Leukocyte Esterase Negative (NEGATIVE) 09/23/20 11:54 Urine RBC 10-20 /HPF (0-3) A 09/23/20 11:54 Urine WBC 0-2 /HPF (0-5) 09/23/20 11:54 Ur Squamous Epith Cells Rare /HPF (NEGATIVE) 09/23/20 11:54 Urine Bacteria Negative /HPF (NEGATIVE) 09/23/20 11:54 Ur Culture Indicated? No/not indicated 09/23/20 11:54 - Plan (1) Saddle embolism of pulmonary artery Status: Acute Qualifiers: Chronicity: acute Acute cor pulmonale presence: unspecified Qualified Co de(s): I26.92 - Saddle embolus of pulmonary artery without acute cor pulmonale Plan: THROMBOLYSIS TODAY (2) CAD (coronary artery disease) Status: Chronic Qualifiers: Coronary Disease-Associated Artery/Lesion type: unspecified vessel or lesion type [place] vs. 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 (4) Hypertension, essential Status: Chronic Plan: Controlled; continue current mgmt.
--- NOTE | 2020-09-28 23:36 | PCM.PROG ---
Progress Note - Progress Note for Day of Date of Exam: 09/28/20 - Subjective Subjective: WAS ADMITTED ON 09/23/20 FOR TREATMENT OF AN ACUTE SADDLE EMBOLISM. SHE WAS TAKEN TO THE OR YESTERDAY FOR THROMBOLYSIS OF EMBOLISM. MEDICATIONS FINISHED INFUSING THIS MORNING. TODAY, SHE IS ALERT AND ORIENTED, SITTING UP IN BED ON MORNING ROUNDS. SHE CONTINUES WITH COMPLAINTS OF SHORTNESS OF BREATH AT TIMES WELL GENERALIZED WEAKNESS. ON EXAMINATION, HEART IS REGULAR IN RATE AND RHYTHM. BILATERAL LUNGS ARE NOTED WITH DIMINISHED LUNG SOUNDS THROUGHOUT. ABDOMEN IS OBESE, SOFT, AND NON-TENDER WITH HYPOACTIVE BOWEL SOUNDS NOTED IN ALL QUADRANTS. LIMON ATHETER NOTED TO BEDSIDE DRAINAGE. TRACE EDEMA NOTED TO LOWER EXTREMITIES. HER VITALS THIS MORNING ARE: 98.0-71-28-97%-132/73. LABS WERE OBTAINED. ABNORMAL LAB VALUES INCLUDE THE FOLLOWING: HGB 11.0, HCT 33.0, GLUCOSE 229, TOTAL PROTEIN 6.3, ALBUMIN 2.8. BLOOD CULTURES ARE PENDING. SHE IS CURRENTLY RECEIVING ELIQUIS 10MG PO BID, MILK OF MAGNESIA, COLACE, THE POTASSIUM AND MAGNESIUM PROTOCOLS, NORMAL SALINE AT 75 ML/HR, AND HER HOME MEDICATIONS WERE RESUMED. HAS ORDERED A REPEAT CTA THIS MORNING. OTHERWISE, WE WILL CONTINUE WITH CURRENT PLAN OF CARE TODAY. WE WILL FOLLOW UP WITH AM LABS AND CONTINUE TO MONITOR. TIME SPENT ON CLINICAL ASSESSMENT, REVIEWING LABS AND IMAGING, DECISION MAKING, AND DOCUMENTATION G REATER THAN 45 MINUTES. - Past Medical Family Social History Past Med/Fam/Surg Hx: No changes since H&P Allergies: Allergies No Known Drug Allergies Allergy (Verified 09/23/20 09:01) - Review of Systems ROS: No change since H&P - Vital Signs and I&O's Vital Signs: Temperature 98.6 F Pulse Rate [Right] 54 Pulse Rate [Left] 63 Pulse Rate [Sitting] 83 Pulse Rate [Lying] 83 Pulse Rate 65 Respiratory Rate 19 Blood Pressure [Left Arm] 139/68 Blood Pressure [Sitting] 142/98 Blood Pressure [Lying] 147/92 Blood Pressure 157/74 O2 Sat by Pulse Oximetry 99 Intake and Output: Intake & Output 09/26/20 09/27/20 09/28/20 09/29/20 11:59 11:59 11:59 11:59 Intake Total 3416 / 3416 2937 / 2937 3943 / 3943 1036 / 1036 Output Total 2900 / 2900 1375 / 1375 2185 / 2185 925 / 925 Balance 516 / 516 1562 / 1562 1758 / 1758 111 / 111 - Physical Exam Oriented: Normal, Time, Person, Place Eyes: Normal Ear: Normal Nose: Normal Throat: Normal Respiratory: Generalized, Diminished Cardiovascular: Normal, Other (regular rate and rhythm) : Normal Auscultation: Bowel Sounds: Normal Tenderness: Normal Skin: Normal Musculoskeletal: Normal Psychiatric: Normal Mood Description: Calm Affect: Normal Speech Pattern: Clear, Appropriate - Laboratory and Diagnostics Result Diagrams: 09/28/20 04:40 09/28/20 04:40 Labs: 09/23/20 09:22 Blood Blood Culture - Final 09/23/20 09:13 Blood Blood Culture - Final Laboratory WBC 8.9 X10^3/uL (3.6-10.0) 09/28/20 04:40 RBC 3.76 X10^6/uL (3.5-5.4) 09/28/20 04:40 Hgb 11.0 g/dL (12.0-16.0) L 09/28/20 04:40 Hct 33.0 % (36.0-47.0) L 09/28/20 04:40 MCV 88.0 fL (80.0-100.0) 09/28/20 04:40 MCH 29.4 pg (27.0-34.0) 09/28/20 04:40 MCHC 33.4 g/dL (33.0-35.0) 09/28/20 04:40 RDW 14.4 % (11.6-16.5) 09/28/20 04:40 Plt Count 191 X10^3/uL (150.0-450.0) 09/28/20 04:40 MPV 8.5 fL (7.4-11.0) 09/28/20 04:40 Neut % (Auto) 73.7 % (42.0-75.0) 09/28/20 04:40 Lymph % (Auto) 13.0 % (21.0-51.0) L 09/28/20 04:40 [place] % (Auto) 9.3 % (0.0-13.0) 09/28/20 04:40 Eos % (Auto) 3.5 % (0.9-2.9) H 09/28/20 04:40 Baso % (Auto) 0.5 % (0.2-1.0) 09/28/20 04:40 Neut # (Auto) 6.5 x10^3/uL (2.2-4.8) H 09/28/20 04:40 Lymph # (Auto) 1.2 X10^3/uL (1.3-2.9) L 09/28/20 04:40 [place]ia # (Auto) 0.8 x10^3/uL (0.3-0.8) 09/28/20 04:40 Eos # (Auto) 0.3 x10^3/uL (0.0-0.2) H 09/28/20 04:40 Baso # (Auto) 0.0 X10^3/uL (0.0-0.1) 09/28/20 04:40 Absolute Nucleated RBC 0.0 /100WBC 09/28/20 04:40 APTT 30.4 SECONDS (22.9-36.5) 09/28/20 04:40 PTT Comment - 09/28/20 04:40 Fibrinogen 519 mg/dL (239-489) H 09/28/20 04:40 D-Dimer 8.94 ug/ml (0.0-0.57) H* 09/23/20 09:13 Sodium 139 mmol/L (136-145) 09/28/20 04:40 Corrected Sodium 142 mmol/L (136-145) 09/28/20 04:40 Potassium 4.4 mmol/L (3.5-5.1) 09/28/20 04:40 Chloride 104 mmol/L (98-107) 09/28/20 04:40 Carbon Dioxide 31.3 mmol/L (21-32) 09/28/20 04:40 BUN 9 mg/dL (7-18) 09/28/20 04:40 Creatinine 0.82 mg/dL (0.55-1.02) 09/28/20 04:40 Est GFR (MDRD) Af Amer > 60 (>60) 09/28/20 04:40 Est GFR (MDRD) Non-Af > 60 (>60) 09/28/20 04:40 Glucose 229 mg/dL (65-99) H 09/28/20 04:40 POC Glucose (mg/dL) 270 mg/dL (65-99) H 09/28/20 19:44 Calcium 8.5 mg/dL (8.5-10.1) 09/28/20 04:40 Corrected Calcium 9.5 mg/dL (8.5-10.1) 09/28/20 04:40 Magnesium 1.8 mg/dL (1.7-2.9) 09/27/20 04:45 Total Bilirubin 0.40 mg/dL (0.2-1.0) 09/28/20 04:40 AST 15 Units/L (15-37) 09/28/20 04:40 ALT 18 Units/L (12-78) 09/28/20 04:40 Alkaline Phosphatase 58 Units/L (46-116) 09/28/20 04:40 Creatine Kinase 107 Units/L (26-192) 09/23/20 09:13 CK-MB (CK-2) 2.2 ng/mL (0-4.0) 09/23/20 09:13 CK/CKMB % Calc 2.1 % (<4) 09/23/20 09:13 Troponin I 0.10 ng/mL (0-1.5) 09/23/20 09:13 B-Natriuretic Peptide 51.4 pg/mL (0-79) 09/23/20 09:13 Total Protein 6.3 g/dL (6.4-8.2) L 09/28/20 04:40 Albumin 2.8 g/dL (3.4-5.0) L 09/28/20 04:40 Globulin 3.5 g/dL (2.5-4.5) 09/28/20 04:40 Albumin/Globulin Ratio 0.8 Ratio (1.1-2.1) L 09/28/20 04:40 Specimen Type Catherized urine 09/23/20 11:54 Urine Color Yellow (YELLOW) 09/23/20 11:54 Urine Appearance Clear (CLEAR) 09/23/20 11:54 Urine pH 6.0 (5.0 - 8.0) 09/23/20 11:54 Ur Specific [place] 1.015 (1.000-1.030) 09/23/20 11:54 Urine Protein Negative (NEGATIVE) 09/23/20 11:54 Urine Glucose (UA) Negative (NEGATIVE) 09/23/20 11:54 Urine Ketones Negative (NEGATIVE) 09/23/20 11:54 Urine Occult Blood 3+ (NEGATIVE) 09/23/20 11:54 Urine Nitrite Negative (NEGATIVE) 09/23/20 11:54 Urine Bilirubin Negative (NEGATIVE) 09/23/20 11:54 Urine Urobilinogen Normal (NORMAL) 09/23/20 11:54 Ur Leukocyte Esterase Negative (NEGATIVE) 09/23/20 11:54 Urine RBC 10-20 /HPF (0-3) A 09/23/20 11:54 Urine WBC 0-2 /HPF (0-5) 09/23/20 11:54 Ur Squamous Epith Cells Rare /HPF (NEGATIVE) 09/23/20 11:54 Urine Bacteria Negative /HPF (NEGATIVE) 09/23/20 11:54 Ur Culture Indicated? No/not indicated 09/23/20 11:54 - Plan (1) Saddle embolism of pulmonary artery Status: Acute Qualifiers: Chronicity: acute Acute cor pulmonale presence: unspecified Qualified Code(s): I26.92 - Saddle embolus of pulmonary artery without acute cor pulmonale Plan: THROMBOLYSIS TODAY (2) CAD (coronary artery disease) Status: Chronic Qualifiers: Coronary Disease-Associated Artery/Lesion type: unspecified vessel or lesion type [place] vs. 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 (4) Hypertension, essential Status: Chronic Plan: Controlled; continue current mgmt.
[2020-09-29] MEDS: NS 1000 ML 1,000 ML IV SCH (00:23)
[2020-09-29 06:09] LABS: BASOPHILS # (AUTO) 0.1 X10^3/uL (0.0-0.1); BASOPHILS % (AUTO) 0.6 % (0.2-1.0); EOSINOPHILS # (AUTO) 0.3 x10^3/uL (0.0-0.2); EOSINOPHILS % (AUTO) 3.8 % (0.9-2.9); HEMATOCRIT 32.9 % (36.0-47.0); LYMPHOCYTES # (AUTO) 1.4 X10^3/uL (1.3-2.9); LYMPHOCYTES % (AUTO) 16.7 % (21.0-51.0); MEAN CORPUSCULAR HEMOGLOBIN 29.5 pg (27.0-34.0); MEAN CORPUSCULAR HGB CONC 33.5 g/dL (33.0-35.0); MEAN CORPUSCULAR VOLUME 87.9 fL (80.0-100.0); MEAN PLATELET VOLUME 8.5 fL (7.4-11.0); MONOCYTES # (AUTO) 0.9 x10^3/uL (0.3-0.8); NEUTROPHILS # (AUTO) 5.6 x10^3/uL (2.2-4.8); NEUTROPHILS % (AUTO) 67.9 % (42.0-75.0); PLATELET COUNT 202 X10^3/uL (150.0-450.0); RED BLOOD COUNT 3.74 X10^6/uL (3.5-5.4); RED CELL DISTRIBUTION WIDTH 14.5 % (11.6-16.5); WHITE BLOOD COUNT 8.2 X10^3/uL (3.6-10.0)
[2020-09-29] MEDS: HumuLIN R SUBCUT PRN (06:51)
[2020-09-29 06:55] LABS: ALANINE AMINOTRANSFERASE 15 Units/L (12-78); ALBUMIN 2.9 g/dL (3.4-5.0); ALKALINE PHOSPHATASE 60 Units/L (46-116); ASPARTATE AMINO TRANSFERASE 12 Units/L (15-37); BLOOD UREA NITROGEN 7 mg/dL (7-18); CALCIUM 9.2 mg/dL (8.5-10.1); CARBON DIOXIDE 33.4 mmol/L (21-32); CHLORIDE 103 mmol/L (98-107); COR CA(FOR HYPOALB) 10.1 mg/dL (8.5-10.1); COR NA(FOR HYPERGLY) 143 mmol/L (136-145); SODIUM 140 mmol/L (136-145); TOTAL PROTEIN 6.6 g/dL (6.4-8.2); eGFR NON BLACK RACES > 60 (>60)
[2020-09-29] MEDS: ZYLOPRIM PO SCH (08:47)
[2020-09-29] MEDS: MILK OF MAGNESIA PO SCH (08:47)
[2020-09-29] MEDS: COLACE CAP 100 MG PO SCH (08:48)
[2020-09-29] MEDS: ALDACTONE TAB 25 MG PO SCH (08:48)
[2020-09-29] MEDS: ZyrTEC TAB 10 MG PO SCH (08:48)
[2020-09-29] MEDS: CYMBALTA PO SCH (08:48)
[2020-09-29] MEDS: CATAPRES TAB 0.1 MG PO SCH (08:48)
[2020-09-29] MEDS: ELIQUIS PO SCH (08:48)
[2020-09-29] MEDS: HYDROCHLOROTHIAZIDE 25 MG TAB PO SCH (08:49)
[2020-09-29] MEDS: LOPRESSOR TAB 25 MG PO SCH (08:49)
[2020-09-29] MEDS: LYRICA CAP 150 mg PO SCH (08:50)
[2020-09-29] MEDS: PROTONIX TAB 40 MG PO SCH (08:50)
[2020-09-29] MEDS ORDERED: [UNRECOGNIZED DRUG - OTHER] SUBCUT SCH (09:00)
[2020-09-29] MEDS ORDERED: INSULIN GLARGINE LIXISENATIDE SUBCUT SCH (09:00)
[2020-09-29 12:20] VITALS: BP 158/74
== END 2020-09-29 13:25 | disposition home or self-care (01) | DRG 176 ==
LOC: ER 09:01 → ICU 09:01
PROVIDERS: ADMIT Internal Medicine; ATTEND Internal Medicine
DX: I25.118 Atherosclerotic heart disease of native coronary artery with other forms of angina pectoris; I10 Essential (primary) hypertension; R94.31 Abnormal electrocardiogram [ECG] [EKG]; R06.02 Shortness of breath; Z95.5 Presence of coronary angioplasty implant and graft; Z79.4 Long term (current) use of insulin; I26.92 Saddle embolus of pulmonary artery without acute cor pulmonale; E83.42 Hypomagnesemia; R55 Syncope and collapse; K21.9 Gastro-esophageal reflux disease without esophagitis; E11.65 Type 2 diabetes mellitus with hyperglycemia